=== PATIENT | female | born 1990 | race American Indian/Alaskan Native ===

== ENCOUNTER 2017-05-13 16:01 | Emergency (ER) | payer MEDICAID ==
[2017-05-13 16:46] LABS: Anion Gap 19 mmol/L; BUN/Creatinine Ratio 15.71; Blood Urea Nitrogen 11 mg/dL (7-17); Calcium 9.2 mg/dL (8.4-10.2); Carbon Dioxide 22 mmol/L (22-30); Chloride 102.4 mmol/L (98-107); Glucose 104 mg/dL (65-100); Potassium 3.9 mmol/L (3.6-5.0); Sodium 139 mmol/L (137-145)
[2017-05-13 17:08] LABS: Basophils % (Auto) 0.9 % (0.0-1.8); Eosinophils % (Auto) 3.7 % (0.0-4.3); Hematocrit 38.8 % (30.3-42.9); Hemoglobin 13.2 gm/dl (10.1-14.3); Mean Corpuscular HGB Conc 34 % (30-34); Mean Corpuscular Hemoglobin 32 pg (28-32); Mean Corpuscular Volume 95 fl (79-97); Platelet Count 270 K/mm3 (140-440); Red Blood Count 4.08 M/mm3 (3.65-5.03); Red Cell Distribution Width 13.2 % (13.2-15.2); White Blood Count 8.4 K/mm3 (4.5-11.0)
[2017-05-13] MEDS ORDERED: DELTASONE PO ONE (19:05)
[2017-05-13] MEDS ORDERED: BENADRYL PO ONE (19:05)
[2017-05-13 19:30] VITALS: BP 110/71
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
== END 2017-05-13 20:22 | disposition home or self-care (01) ==
LOC: ED 16:01
DX: T65.94XA Toxic effect of unspecified substance, undetermined, initial encounter (principal); L50.9 Urticaria, unspecified; F17.200 Nicotine dependence, unspecified, uncomplicated; X58.XXXA Exposure to other specified factors, initial encounter
CPT/HCPCS: 36415; 80048; 84703; 85025; 99283; G0480; J7512; 80320

== ENCOUNTER 2017-09-15 17:37 | Emergency (ER) | payer MEDICAID ==
[2017-09-15 18:21] VITALS: BP 135/75
[2017-09-15 19:28] LABS: BUN/Creatinine Ratio 14; Blood Urea Nitrogen 10 mg/dL (7-17); Calcium 9.4 mg/dL (8.4-10.2); Hemolysis Index 29
[2017-09-15 19:34] LABS: Hematocrit 42.9 % (30.3-42.9); Hemoglobin 14.4 gm/dl (10.1-14.3); Mean Corpuscular HGB Conc 34 % (30-34); Mean Corpuscular Hemoglobin 32 pg (28-32); Mean Corpuscular Volume 96 fl (79-97); Platelet Count 271 K/mm3 (140-440); Red Blood Count 4.48 M/mm3 (3.65-5.03); Red Cell Distribution Width 13.1 % (13.2-15.2)
[2017-09-15 19:53] LABS: HCG Qualitative,Urine Negative (Negative)
== END 2017-09-15 20:42 | disposition left against medical advice (07) ==
LOC: ED 17:37
DX: R56.9 Unspecified convulsions (principal); Z53.21 Procedure and treatment not carried out due to patient leaving prior to being seen by health care provider
CPT/HCPCS: 36415; 80048; 80185; 81025; 85027

== ENCOUNTER 2018-02-10 18:56 | Emergency (ER) | payer MEDICAID ==
[2018-02-10 20:41] VITALS: BP 108/73
== END 2018-02-10 20:40 | disposition left against medical advice (07) ==
LOC: ED 18:56
DX: R06.00 Dyspnea, unspecified (principal); Z53.21 Procedure and treatment not carried out due to patient leaving prior to being seen by health care provider

== ENCOUNTER 2018-11-04 11:00 | Emergency (ER) | payer MEDICAID, OTHER ==
[2018-11-04] MEDS ORDERED: KEPPRA 1,000 MG/NS 0.75% 100ML 1,000 MG/100 ML BAG IV ONE (11:34)
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
[2018-11-04 12:33] LABS: Basophils # (Auto) 0.1 K/mm3 (0.0-0.1); Basophils % (Auto) 1.3 % (0.0-1.8); Eosinophils # (Auto) 0.1 K/mm3 (0.0-0.4); Eosinophils % (Auto) 2.5 % (0.0-4.3); Hematocrit 39.6 % (30.3-42.9); Hemoglobin 13.6 gm/dl (10.1-14.3); Lymphocytes # (Auto) 1.9 K/mm3 (1.2-5.4); Lymphocytes % (Auto) 38.8 % (13.4-35.0); Mean Corpuscular HGB Conc 34 % (30-34); Mean Corpuscular Volume 96 fl (79-97); Monocytes # (Auto) 0.3 K/mm3 (0.0-0.8); Monocytes % (Auto) 5.4 % (0.0-7.3); Platelet Count 236 K/mm3 (140-440); Red Blood Count 4.15 M/mm3 (3.65-5.03)
[2018-11-04 12:48] LABS: BUN/Creatinine Ratio 18; Blood Urea Nitrogen 14 mg/dL (7-17); Hemolysis Index 9
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
[2018-11-04] MEDS ORDERED: TORADOL IV ONE (13:21)
[2018-11-04 13:48] VITALS: BP 108/77
== END 2018-11-04 13:47 | disposition home or self-care (01) ==
LOC: ED 11:00
DX: R56.9 Unspecified convulsions (principal); F41.9 Anxiety disorder, unspecified; V89.2XXA Person injured in unspecified motor-vehicle accident, traffic, initial encounter; Y93.89 Activity, other specified; Y92.89 Other specified places as the place of occurrence of the external cause; Y99.8 Other external cause status
CPT/HCPCS: 36415; 70450; 72125; 80048; 83735; 84703; 85025; 96365; 96375; 99284; J1885; J1953

== ENCOUNTER 2019-02-25 18:44 | Inpatient (IN) | payer MEDICAID ==
--- NOTE | 2019-02-25 20:05 | Emergency Department Report ---
HPI - General Chief Complaint: Altered Mental Status Time Seen by Provider: 02/25/19 19:59 - HPI HPI: Room 17 The patient is a 28-year-old female presented with a chief complaint of altered mental status. Patient was brought in by a friend states the patient has had worsening altered mental status since Tuesday. Patient is currently nonverbal and does not answer questions or respond. The patient keeps her eyes open. There is uncertainty whether or not the patient carries a psychiatric diagnosis. Location: [See above] Duration: [See above] Quality: [See above] Severity: [See above] Modifying factors: [see above] Context: [see above] Mode of transportation: [not driving] ED Past Medical Hx - Past Medical History Previous Medical History?: Yes Hx Seizures: Yes - Surgical History Past Surgical History?: Yes Additional Surgical History: LEFT ARM / LEFT FINGERS AMPUTATED - Family History Family history: no significant - Social History Smoking Status: Unknown if ever smoked Substance Use Type: None - Medications Home Medications: Home Medications Medication Instructions Recorded Confirmed Last Taken Type diphenhydrAMINE [Benadryl CAP] 25 mg PO Q8HR PRN #12 capsule 05/13/17 Unknown Rx predniSONE [Deltasone] 20 mg PO QDAY #3 tab 05/13/17 Unknown Rx Ibuprofen [Motrin] 800 mg PO Q8HR PRN #30 tablet 11/04/18 Unknown Rx ED Review of Systems ROS: Stated complaint: AMS Other details as noted in HPI Comment: Unobtainable due to pts medical conditions Physical Exam - Physical Exam Vital Signs: Vital Signs 02/25/19 02/25/19 02/25/19 19:18 19:30 19:45 Temperature Pulse Rate 59 L 57 L Respiratory 20 14 Rate Blood Pressure 99/55 101/58 O2 Sat by Pulse 100 100 100 Oximetry 02/25/19 19:47 Temperature 98.3 F Pulse Rate Respiratory 18 Rate Blood Pressure O2 Sat by Pulse 100 Oximetry Physical Exam: GENERAL: The patient is well-developed well-nourished female lying on stretcher with eyes open staring at the wall not responding to questions. [] HEENT: Normocephalic. Atraumatic. Pupils 4 mm to 2 mm bilaterally NECK: Supple. Trachea midline CHEST/LUNGS: Clear to auscultation. There is no respiratory distress noted. HEART/CARDIOVASCULAR: Regular. There is no tachycardia. There is no gallop rub or murmur. ABDOMEN: Abdomen is soft, nontender. Patient has normal bowel sounds. There is no abdominal distention. SKIN: There is no rash. There is no edema. There is no diaphoresis. NEURO: The patient is awake, but does not follow commands or answer questions. MUSCULOSKELETAL: There is no evidence of acute injury. ED Course Vital Signs 02/25/19 02/25/19 02/25/19 19:18 19:30 19:45 Temperature Pulse Rate 59 L 57 L Respiratory 20 14 Rate Blood Pressure 99/55 101/58 O2 Sat by Pulse 100 100 100 Oximetry 02/25/19 19:47 Temperature 98.3 F Pulse Rate Respiratory 18 Rate Blood Pressure O2 Sat by Pulse 100 Oximetry - Reevaluation(s) Reevaluation #1: 02/26/19 00:33 Patient reports to have a seizure by nursing. Friend is at bedside and states the patient has had increased seizure-like activity and decreased activity over the past 3-4 days ED Medical Decision Making - Lab Data Result diagrams: 02/25/19 20:19 02/25/19 20:19 Laboratory Tests 02/25/19 02/25/19 02/25/19 20:19 20:19 21:04 WBC 10.4 RBC 4.09 Hgb 14.0 Hct 39.4 MCV 96 MCH 34 H MCHC 36 H RDW 12.8 L Plt Count 264 Lymph % (Auto) 22.9 [place] % (Auto) 4.6 Eos % (Auto) 0.5 Baso % (Auto) 0.7 Lymph # 2.4 [place] # 0.5 Eos # 0.0 Baso # 0.1 Seg Neutrophils % 71.3 H Seg Neutrophils # 7.4 PT 13.6 INR 1.07 APTT 24.7 Sodium 136 L Potassium 4.1 Chloride 98.6 Carbon Dioxide 23 Anion Gap 19 BUN 14 Creatinine 0.9 Estimated GFR > 60 BUN/Creatinine Ratio 16 Glucose 89 Calcium 9.5 Magnesium Ammonia Total Creatine Kinase CK-MB (CK-2) CK-MB (CK-2) Rel Index Troponin T TSH Free T4 HCG, Qual Urine Color Urine Turbidity Urine pH Ur Specific [place] Urine Protein Urine Glucose (UA) Urine Ketones Urine Blood Urine Nitrite Urine Bilirubin Urine Urobilinogen Ur Leukocyte Esterase Urine WBC (Auto) Urine RBC (Auto) U Epithel Cells (Auto) Urine Mucus Urine Opiates Screen Urine Methadone Screen Ur Barbiturates Screen Ur Phencyclidine Scrn Ur Amphetamines Screen U Benzodiazepines Scrn Urine Cocaine Screen U Marijuana (THC) Screen Drugs of Abuse Note Plasma/Serum Alcohol 02/25/19 02/25/19 02/25/19 21:04 21:04 21:04 WBC RBC Hgb Hct MCV MCH MCHC RDW Plt Count Lymph % (Auto) [place] % (Auto) Eos % (Auto) Baso % (Auto) Lymph # [place] # Eos # Baso # Seg Neutrophils % Seg Neutrophils # PT INR APTT Sodium Potassium Chloride Carbon Dioxide Anion Gap BUN Creatinine Estimated GFR BUN/Creatinine Ratio Glucose Calcium Magnesium 2.20 Ammonia 54.0 Total Creatine Kinase 148 H CK-MB (CK-2) < 1.0 CK-MB (CK-2) Rel Index 0.6 Troponin T < 0.010 TSH 2.120 Free T4 1.53 H HCG, Qual Urine Color Urine Turbidity Urine pH Ur Specific [place] Urine Protein Urine Glucose (UA) Urine Ketones Urine Blood Urine Nitrite Urine Bilirubin Urine Urobilinogen Ur Leukocyte Esterase Urine WBC (Auto) Urine RBC (Auto) U Epithel Cells (Auto) Urine Mucus Urine Opiates Screen Urine Methadone Screen Ur Barbiturates Screen Ur Phencyclidine Scrn Ur Amphetamines Screen U Benzodiazepines Scrn Urine Cocaine Screen U Marijuana (THC) Screen Drugs of Abuse Note Plasma/Serum Alcohol 02/25/19 02/25/19 02/25/19 21:04 21:04 23:03 WBC RBC Hgb Hct MCV MCH MCHC RDW Plt Count Lymph % (Auto) [place] % (Auto) Eos % (Auto) Baso % (Auto) Lymph # [place] # Eos # Baso # Seg Neutrophils % Seg Neutrophils # PT INR APTT Sodium Potassium Chloride Carbon Dioxide Anion Gap BUN Creatinine Estimated GFR BUN/Creatinine Ratio Glucose Calcium Magnesium Ammonia Total Creatine Kinase CK-MB (CK-2) CK-MB (CK-2) Rel Index Troponin T TSH Free T4 HCG, Qual Negative Urine Color Urine Turbidity Urine pH Ur Specific [place] Urine Protein Urine Glucose (UA) Urine Ketones Urine Blood Urine Nitrite Urine Bilirubin Urine Urobilinogen Ur Leukocyte Esterase Urine WBC (Auto) Urine RBC (Auto) U Epithel Cells (Auto) Urine Mucus Urine Opiates Screen Presumptive negative Urine Methadone Screen Presumptive negative Ur Barbiturates Screen Presumptive negative Ur Phencyclidine Scrn Presumptive negative Ur Amphetamines Screen Presumptive negative U Benzodiazepines Scrn Presumptive negative Urine Cocaine Screen Presumptive negative U Marijuana (THC) Screen Presumptive positive Drugs of Abuse Note Disclamer Plasma/Serum Alcohol < 0.01 02/25/19 23:10 WBC RBC Hgb Hct MCV MCH MCHC RDW Plt Count Lymph % (Auto) [place] % (Auto) Eos % (Auto) Baso % (Auto) Lymph # [place] # Eos # Baso # Seg Neutrophils % Seg Neutrophils # PT INR APTT Sodium Potassium Chloride Carbon Dioxide Anion Gap BUN Creatinine Estimated GFR BUN/Creatinine Ratio Glucose Calcium Magnesium Ammonia Total Creatine Kinase CK-MB (CK-2) CK-MB (CK-2) Rel Index Troponin T TSH Free T4 HCG, Qual Urine Color Yellow Urine Turbidity Clear Urine pH 5.0 Ur Specific [place] 1.026 Urine Protein 100 mg/dl Urine Glucose (UA) Neg Urine Ketones 80 Urine Blood Neg Urine Nitrite Neg Urine Bilirubin Neg Urine Urobilinogen < 2.0 Ur Leukocyte Esterase Neg Urine WBC (Auto) 1.0 Urine RBC (Auto) < 1.0 U Epithel Cells (Auto) 1.0 Urine Mucus 1+ Urine Opiates Screen Urine Methadone Screen Ur Barbiturates Screen Ur Phencyclidine Scrn Ur Amphetamines Screen U Benzodiazepines Scrn Urine Cocaine Screen U Marijuana (THC) Screen Drugs of Abuse Note Plasma/Serum Alcohol - EKG Data -: EKG Interpreted by Ct EKG shows normal: sinus rhythm Rate: normal - EKG Data When compared to previous EKG there are: previous EKG unavailable Interpretation: other (no ischemic changes seen) - Radiology Data Radiology results: report reviewed (CT head), image reviewed (CT head) [facility] [address] [place] [address] Cat Scan Report Signed Patient: MICHELLE HANNON MR#: [id number] : 1990 Acct:[id number] Age/Sex: 28 / F ADM Date: 02/25/19 Loc: ED Attending Dr: Ordering Physician: JOCE SANTIAGO MD Date of Service: 02/25/19 Procedure(s): CT head/brain wo con Accession Number(s): [id number] cc: JOCE SANTIAGO MD CT HEAD WITHOUT CONTRAST INDICATION: altered mental status. TECHNIQUE: All CT scans at this location are performed using CT dose reduction for ALARA by means of automated exposure control. COMPARISON: CT 11/04/2018. FINDINGS: HEMORRHAGE: None. EXTRA-AXIAL SPACES: Normal in size and morphology for the patient's age. VENTRICULAR SYSTEM: Normal in size and morphology for the patient's age. BRAIN PARENCHYMA: No acute findings. MIDLINE SHIFT OR HERNIATION: None. ORBITS: Normal as visualized. SOFT TISSUES OF HEAD: Normal. CALVARIUM: Normal. VISUALIZED PARANASAL SINUSES AND MASTOID AIR CELLS: Clear. ADDITIONAL FINDINGS: None. IMPRESSION: 1. No acute intracranial abnormality. Signer Name: Khanh Hopkins MD Signed: 02/25/2019 10:44 PM Workstation Name: [id number] Transcribed By: SW Dictated By: Khanh Hopkins MD Electronically Authenticated By: Khanh Hopkins MD Signed Date/Time: 02/25/192243 DD/ 41 TD/TT: - Differential Diagnosis status epilepticus, altered mental status, psychosis Critical care attestation.: If time is entered above; I have spent that time in minutes in the direct care of this critically ill patient, excluding procedure time. ED Disposition Clinical Impression: Altered mental status, Status epilepticus Disposition: OP ADMIT IP TO THIS HOSP Is pt being admited?: Yes Does the pt Need Aspirin: No Condition: Fair Referrals: PRIMARY CARE, [Primary Care Provider] - 3-5 Days Time of Disposition: 00:49 (hospitalist paged (Dr. Shahnaz Grijalva))
[2019-02-25 20:40] LABS: Basophils # (Auto) 0.1 K/mm3 (0.0-0.1); Basophils % (Auto) 0.7 % (0.0-1.8); Eosinophils % (Auto) 0.5 % (0.0-4.3); Hematocrit 39.4 % (30.3-42.9); Lymphocytes # (Auto) 2.4 K/mm3 (1.2-5.4); Lymphocytes % (Auto) 22.9 % (13.4-35.0); Mean Corpuscular HGB Conc 36 % (30-34); Mean Corpuscular Volume 96 fl (79-97); Monocytes # (Auto) 0.5 K/mm3 (0.0-0.8); Monocytes % (Auto) 4.6 % (0.0-7.3); Platelet Count 264 K/mm3 (140-440); Red Blood Count 4.09 M/mm3 (3.65-5.03); Red Cell Distribution Width 12.8 % (13.2-15.2)
[2019-02-25 21:15] LABS: BUN/Creatinine Ratio 16; Blood Urea Nitrogen 14 mg/dL (7-17); Calcium 9.5 mg/dL (8.4-10.2); Hemolysis Index 8
[2019-02-25 21:48] LABS: INR 1.07 (0.87-1.13)
[2019-02-25 21:49] LABS: Partial Thromboplastin Time 24.7 Sec. (24.2-36.6)
[2019-02-25 22:17] LABS: Free T4 (Free Thyroxine) 1.53 ng/dL (0.76-1.46)
[2019-02-25 22:31] LABS: Creatine Kinase MB < 1.0 ng/mL (0.0-4.0)
--- NOTE | 2019-02-25 22:48 | Cat Scan Report ---
CT HEAD WITHOUT CONTRAST INDICATION: altered mental status. TECHNIQUE: All CT scans at this location are performed using CT dose reduction for ALARA by means of automated e xposure control. COMPARISON: CT 11/04/2018. FINDINGS: HEMORRHAGE: None. EXTRA-AXIAL SPACES: Normal in size and morphology for the patient's age. VENTRICULAR SYSTEM: Normal in size and morphology for the patient's age. BRAIN PARENCHYMA: No acute findings. MIDLINE SHIFT OR HERNIATION: None. ORBITS: Normal as visualized. SOFT TISSUES OF HEAD: Normal. CALVARIUM: Normal. VISUALIZED PARANASAL SINUSES AND MASTOID AIR CELLS: Clear. ADDITIONAL FINDINGS: None. IMPRESSION: 1. No acute intracranial abnormality. Signer Name: Khanh Hopkins MD Signed: 02/25/2019 10:44 PM Workstation Name: [id number]
[2019-02-25 23:22] LABS: Bilirubin,Urine NEG (Negative); Blood,Urine NEG (Negative); Color,Urine Yellow (Yellow); Mucus,Urine 1+ /HPF; RBC,Urine < 1.0 /HPF (0.0-6.0); Urobilinogen,Urine < 2.0 mg/dL (<2.0)
[2019-02-25 23:36] LABS: Amphetamine Screen,Urine PRESUMPTIVE NEGATIVE; Benzodiazepines Screen,Urine PRESUMPTIVE NEGATIVE; Cocaine Screen,Urine PRESUMPTIVE NEGATIVE; Methadone Screen,Urine PRESUMPTIVE NEGATIVE; Opiate Screen,Urine PRESUMPTIVE NEGATIVE
[2019-02-26 00:02] LABS: Cannabinoid Screen,Urine PRESUMPTIVE POSITIVE
[2019-02-26] MEDS ORDERED: KEPPRA 1,000 MG/NS 0.75% 100ML 1,000 MG/100 ML BAG IV ONE (00:31)
[2019-02-26] MEDS ORDERED: ATIVAN ONE (00:40)
[2019-02-26] MEDS ORDERED: ZOFRAN IV PRN (01:18)
[2019-02-26] MEDS ORDERED: SODIUM CHLORIDE FLUSH SYRINGE 10 ML IV PRN (01:18)
--- NOTE | 2019-02-26 01:20 | History and Physical Report ---
History of Present Illness Date of examination: 02/26/19 History of present illness: 28 year old woman with a history of seizure was brought to the emergency room by her because she has been altered. One of the nurse in emergency room reported that she had seizure-like activity. Denies that currently has her state that she had some jerking of her body which was not seizures. I have also witnessed this and my interaction with her. She is very tearful, nonverbal, stares off into space. Nurse reported that the friend told her that the patient is under a lot of stress, review of systems unobtainable PAST MEDICAL HISTORY:Unknown PAST SURGICAL HISTORY: Unknown SOCIAL HISTORY:Unknown alcohol, tobacco, marijuana in urine FAMILY HISTORY: Unknown Medications and Allergies Allergies Allergy/AdvReac Type Severity Reaction Status Date / Time No Known Allergies Allergy Verified 02/10/18 20:59 Home Medications Medication Instructions Recorded Confirmed Last Taken Type diphenhydrAMINE [Benadryl CAP] 25 mg PO Q8HR PRN #12 capsule 05/13/17 Unknown Rx predniSONE [Deltasone] 20 mg PO QDAY #3 tab 05/13/17 Unknown Rx Ibuprofen [Motrin] 800 mg PO Q8HR PRN #30 tablet 11/04/18 Unknown Rx Exam - Physical Exam Narrative exam: General Apperance: The patient lying in bed, breathing comfortable HEENT: Normocephalic, atraumatic. Pupils equally round and reactive to light, EOMI, no sclericterus or JVD or thyromegaly or nodule. , no carotid bruit, mucous membranes moist, no exudate or erythema Heart: S1-S2, regular is rhythm Lungs: Clear to auscultation bilaterally, breathing comfortable Abdomen: Positive bowel sounds, soft, nontender, nondistended, no organomegaly Extremities: No edema cyanosis clubbing Skin: no rash, nodule, warm and dry Neuro:difficult to assess - Constitutional Vitals: Temp Pulse Resp BP Pulse Ox 98.3 F 58 L 17 113/69 98 02/25/19 19:47 02/26/19 01:00 02/26/19 01:00 02/26/19 01:00 02/26/19 01:00 Results - Labs CBC & Chem 7: 02/25/19 20:19 02/25/19 20:19 Labs: Abnormal lab results 02/25/19 02/25/19 02/25/19 Range/Units 20:19 20:19 21:04 MCH 34 H (28-32) pg MCHC 36 H (30-34) % RDW 12.8 L (13.2-15.2) % Seg Neutrophils % 71.3 H (40.0-70.0) % Sodium 136 L (137-145) mmol/L Total Creatine Kinase 148 H (30-135) units/L Free T4 (0.76-1.46) ng/dL 02/25/19 Range/Units 21:04 MCH (28-32) pg MCHC (30-34) % RDW (13.2-15.2) % Seg Neutrophils % (40.0-70.0) % Sodium (137-145) mmol/L Total Creatine Kinase (30-135) units/L Free T4 1.53 H (0.76-1.46) ng/dL - Imaging and Cardiology CT Scan - head: report reviewed Assessment and Plan Assessment 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
[2019-02-26] MEDS ORDERED: ATIVAN IV PRN (01:23)
[2019-02-26 06:28] LABS: Basophils # (Auto) 0.1 K/mm3 (0.0-0.1); Eosinophils # (Auto) 0.2 K/mm3 (0.0-0.4); Eosinophils % (Auto) 2.3 % (0.0-4.3); Hematocrit 41.3 % (30.3-42.9); Hemoglobin 13.8 gm/dl (10.1-14.3); Lymphocytes # (Auto) 2.7 K/mm3 (1.2-5.4); Mean Corpuscular HGB Conc 33 % (30-34); Mean Corpuscular Volume 97 fl (79-97); Monocytes # (Auto) 0.5 K/mm3 (0.0-0.8); Monocytes % (Auto) 6.4 % (0.0-7.3); Platelet Count 268 K/mm3 (140-440); Red Blood Count 4.27 M/mm3 (3.65-5.03); Red Cell Distribution Width 13.3 % (13.2-15.2)
[2019-02-26 06:51] LABS: BUN/Creatinine Ratio 19; Blood Urea Nitrogen 13 mg/dL (7-17); Calcium 9.3 mg/dL (8.4-10.2); Hemolysis Index 1
[2019-02-26] MEDS ORDERED: LOVENOX SUB-Q SCH (10:00)
[2019-02-26] MEDS: LOVENOX SUB-Q SCH (10:31)
[2019-02-26] MEDS: SODIUM CHLORIDE FLUSH SYRINGE 10 ML IV SCH ×2 (10:31→22:56)
--- NOTE | 2019-02-26 10:39 | Consultation ---
History of Present Illness - Reason for Consult Consult date: 02/26/19 Reason for consult: Mental Health Evaluation Requesting physician: GEOVANNY VIZCAINO - Chief Complaint Chief complaint: "The isn't communicating" - History of Present Psychiatric Illness 28-year-old AA female who presented to the ER for AMS. Today the patient was was not communicating, but her left hand was clenched tight. She would not open her eyes when asked. Per collateral information from a friend of the patient Christiano who was at the bedside, he stated that the patient has a hx of seizures (taken several anticonvulsants), depression, and anxiety. He stated that the patient have not eaten or communicated like "herself" the past 2 or 3 days. He did state that the patient experienced some stress reference a situation with her daughter that occurred in [place], [place] recently. Ativan challenge completed, no significant change in the patient's presentation per her assigned RN. Medications and Allergies Allergies Allergy/AdvReac Type Severity Reaction Status Date / Time No Known Allergies Allergy Verified 02/10/18 20:59 Home Medications Medication Instructions Recorded Confirmed Last Taken Type predniSONE [Deltasone] 20 mg PO QDAY #3 tab 05/13/17 Unknown Rx Ibuprofen [Motrin] 800 mg PO Q8HR PRN #30 tablet 11/04/18 Unknown Rx Vimpat 100 tab PO 02/26/19 Unknown History diphenhydrAMINE [Benadryl CAP] 25 mg PO Q8HR PRN 02/26/19 Unknown History Active Meds: Active Medications Acetaminophen (Tylenol) 650 mg PO Q4H PRN PRN Reason: Pain MILD(1-3)/Fever >100.5/CHAVEZ Enoxaparin Sodium (Lovenox) 40 mg SUB-Q QDAY@1000 BELTRAN Last Admin: 02/26/19 10:31 Dose: 40 mg Documented by: Sodium Chloride (Nacl 0.9% 1000 Ml) 1,000 mls @ 100 mls/hr IV DIRECT BELTRAN Lorazepam (Ativan) 1 mg IV Q4H PRN PRN Reason: Seizures Lorazepam (Ativan) 1 mg IM ONCE ONE Stop: 02/26/19 10:46 Last Admin: 02/26/19 10:33 Dose: 1 mg Documented by: Ondansetron HCl (Zofran) 4 mg IV Q8H PRN PRN Reason: Nausea And Vomiting Sodium Chloride (Sodium Chloride Flush Syringe 10 Ml) 10 ml IV BID BELTRAN Last Admin: 02/26/19 10:31 Dose: 10 ml Documented by: Sodium Chloride (Sodium Chloride Flush Syringe 10 Ml) 10 ml IV PRN PRN PRN Reason: LINE FLUSH Past psychiatric history - Past Medical History Past Medical History: other (Hx of seizures per collateral information) Past Surgical History: Other (Unable to obatin ) - past Psychiatric treatment and history psychiatric treatment history: Hx of depression/anxiety per collateral information. - Social History Social history: lives with family Mental Status Exam - Vital signs Last Vital Signs Temp 98.2 F 02/26/19 08:52 Pulse 60 02/26/19 03:41 Resp 19 02/26/19 08:52 BP 116/66 02/26/19 08:52 Pulse Ox 98 02/26/19 09:35 - Exam Narrative exam: Unable to complete the MSE because of the patient's condition. Results Result Diagrams: 02/26/19 06:01 02/26/19 06:01 Abnormal lab results 02/25/19 02/25/19 02/25/19 Range/Units 20:19 20:19 21:04 MCH 34 H (28-32) pg MCHC 36 H (30-34) % RDW 12.8 L (13.2-15.2) % Seg Neutrophils % 71.3 H (40.0-70.0) % Sodium 136 L (137-145) mmol/L Carbon Dioxide (22-30) mmol/L Total Creatine Kinase 148 H (30-135) units/L Free T4 (0.76-1.46) ng/dL 02/25/19 02/26/19 Range/Units 21:04 06:01 MCH (28-32) pg MCHC (30-34) % RDW (13.2-15.2) % Seg Neutrophils % (40.0-70.0) % Sodium (137-145) mmol/L Carbon Dioxide 20 L (22-30) mmol/L Total Creatine Kinase (30-135) units/L Free T4 1.53 H (0.76-1.46) ng/dL All other labs normal. Assessment and Plan Assessment and plan: Impression: Hx of Depresion/Anxiety DO per collateral information. Today the patient was not communicating, but her left hand was clenched tight. Recommendation/Plan: Ativan 1 mg IM once to R/O catatonia (Ativan Challenge). Recommend Neuro consult, the patient has a hx of seizures per collateral information from Christiano a friend who's at the bedside. Staffed with Dr Tatiana Brunner.
[2019-02-26] MEDS ORDERED: ATIVAN IM ONE (10:45)
[2019-02-26] MEDS: NACL 0.9% 1000 ML 1,000 ML IV SCH ×2 (11:06→18:50)
[2019-02-27] MEDS: NACL 0.9% 1000 ML 1,000 ML IV SCH (05:29)
[2019-02-27] MEDS: TYLENOL PO PRN ×2 (05:57→08:42)
[2019-02-27] MEDS: SODIUM CHLORIDE FLUSH SYRINGE 10 ML IV SCH (09:13)
[2019-02-27] MEDS: LOVENOX SUB-Q SCH (09:13)
--- NOTE | 2019-02-27 13:34 | Progress Note ---
Subjective - Reason for Consult Consult date: 02/27/19 Reason for consult: Psychiatry Follow-up - Chief Complaint Chief complaint: "I'm in pain" 28-year-old AA female who presented to the ER for AMS. Today the patient was calm and cooperative during the assessment. She stated that that she was having pain the past few days and felt "weird." She stated that she remember me the provider from yesterday. She was able to recall 3/3 numbers and state the cu rrent/past [place] Presidents when asked. She stated that her seizure activity has caused her to feel "depressed." She did acknowledged not not following up with her neurologist as she should. She stated that she has a hx of depression/anxiety. She stated that she do not want to take any medications for depression/anxiety because she can deal with her stressors. She denies a past suicide attempt when asked. She denies SI/HI's and AVH's. She stated that she is homeless. . Mental Status Exam - Vital signs Last Vital Signs Temp 98.2 F 02/27/19 11:49 Pulse 58 L 02/27/19 11:49 Resp 19 02/27/19 11:49 BP 111/69 02/27/19 11:49 Pulse Ox 98 02/27/19 11:49 - Exam Narrative exam: MSE: Appearance: calm, cooperative Behavior: regular eye contact Speech: regular rate and tone Mood: "okay" Affect: congruent to mood Thought Process: circumstantial Thought Content: denies SI/HI's and AVH's Motor Activity: ambulatory Cognition: A/O x 3 Insight: fair Judgment fair Assessment and Plan Impression: Hx of Depresion/Anxiety DO per collateral information. The patient stated that she's experiencing pain. Today the patient was calm and cooperative during the assessment. Recommendation/Plan: Discussed risk/benefits of SSRI's with the patient, she prefer talk therapy at this time. Case Mgmt consulted, the patient may need assistance with placement. Psy sign off. Dispo: The patient can follow up with [facility] for outpatient psy services. Will staff with Dr Tatiana Brunner.
[2019-02-27 18:12] VITALS: BP 128/79
--- NOTE | 2019-02-27 18:14 | Discharge Summary ---
Providers - Providers Date of Admission: 02/26/19 01:18 Attending physician: MICHELLE WILSON MD 02/26/19 01:22 Consult to Mental Health [CONS] Routine Reason For Exam: psychogenic sz Place consult to:: psych Notified:: Phone number called:: [phone] Was contact made?: No Time called:: 11:14 Comment:: someone answered the phone. 02/27/19 13:21 Consult to Case Management [CONS] Stat Services Needed at Discharge: Warehouse Associate Driver Notified:: Called case Mgmt Primary care physician: INVESTIGATIVE AGENT Hospitalization Condition: Fair Hospital course: 28 year old woman with a history of seizure was brought to the emergency room by her because she has been altered. She had shaking of extremities due to stress, but no seizures, she was seen by psych, and reassured and advised to fup as outpatient. She complained of body aches and was given pain meds - dx conversion disorder stress pain syndrome Disposition: TO HOME OR SELFCARE Time spent for discharge: 33 minutes Core Measure Documentation - Palliative Care Palliative Care/ Comfort Measures: Not Applicable - Core Measures Any of the following diagnoses?: none Exam - Constitutional Vitals: Temp Pulse Resp BP Pulse Ox 98.4 F 58 L 19 128/79 98 02/27/19 17:09 02/27/19 11:49 02/27/19 17:09 02/27/19 17:09 02/27/19 11:49 General appearance: Present: no acute distress, well-nourished - EENT Eyes: Present: PERRL ENT: hearing intact, clear oral mucosa - Neck Neck: Present: supple, normal ROM - Respiratory Respiratory effort: normal Respiratory: bilateral: CTA - Cardiovascular Heart Sounds: Present: S1 & S2. Absent: rub, click - Extremities Extremities: pulses symmetrical, No edema Peripheral Pulses: within normal limits - Abdominal General gastrointestinal: Present: soft, non-tender, non-distended, normal bowel sounds Female genitourinary: Present: normal - Integumentary Integumentary: Present: clear, warm, dry - Musculoskeletal Musculoskeletal: gait normal, strength equal bilaterally - Psychiatric Psychiatric: appropriate mood/affect, intact judgment & insight - Neurologic Neurologic: CNII-XII intact, moves all extremities Plan Follow up with: PRIMARY CARE, [Primary Care Provider] - 3-5 Days Prescriptions: oxyCODONE /ACETAMINOPHEN [Percocet 5/325] 1 tab PO Q6HR PRN #30 tablet PRN Reason: Pain
== END 2019-02-27 22:25 | disposition home or self-care (01) | DRG 880 ==
LOC: ED 18:44 → 3A 02-26 01:18
PROVIDERS: ADMIT Internal Medicine; ATTEND Internal Medicine
DX: F44.9 Dissociative and conversion disorder, unspecified (principal); F29 Unspecified psychosis not due to a substance or known physiological condition; F32.9 Major depressive disorder, single episode, unspecified; F41.9 Anxiety disorder, unspecified; F44.4 Conversion disorder with motor symptom or deficit; R52 Pain, unspecified; F43.9 Reaction to severe stress, unspecified
CPT/HCPCS: 36415; 70450; 80048; 80307; 80320; 81001; 82140; 82550; 82553; 83735; 84439; 84443; 84484; 84703; 85025; 85610; 85730; 93005; 93010; G0378; G0480; J1650; J1953; J2060; J7030

== ENCOUNTER 2020-07-10 11:19 | Emergency (ER) | payer MEDICAID ==
[2020-07-10] MEDS ORDERED: SODIUM CHLORIDE 0.9% 1000 ML 1,000 ML IV ONE (11:52)
--- NOTE | 2020-07-10 12:00 | Emergency Department Report ---
ED Seizure HPI - General Chief Complaint: Seizure Stated Complaint: SEIZURE Time Seen by Provider: 07/10/20 11:52 Source: patient, EMS Mode of arrival: Stretcher Limitations: Altered Mental Status - History of Present Illness Initial Comments: Patient is a 30-year-old F [place]ian female who is had between 10 and 15 seizures over the last 2 days. Family states she takes Dilantin but is noncompliant. Family states that in between seizures she has had altered mental status. She is not return to present to her baseline. Has been no report of any fevers chills nausea vomiting. Patient had a similar episode 2 months ago and was loaded with Dilantin because her levels were subtherapeutic. given Ativan 2mg IM for being postictal and combative prior to arrival MD Complaint: seizure - Related Data Home Medications Medication Instructions Recorded Confirmed Last Taken Vimpat 100 tab PO 02/26/19 Unknown diphenhydrAMINE [Benadryl CAP] 25 mg PO Q8HR PRN 02/26/19 Unknown Previous Rx's Medication Instructions Recorded Last Taken Type predniSONE [Deltasone] 20 mg PO QDAY #3 tab 05/13/17 Unknown Rx Ibuprofen [Motrin 800 MG tab] 800 mg PO Q8HR PRN #30 tablet 11/04/18 Unknown Rx oxyCODONE /ACETAMINOPHEN [Percocet 1 tab PO Q6HR PRN #30 tablet 02/27/19 Unknown Rx 5/325] Phenytoin [Dilantin] 100 mg PO Q8HR #90 capsule 07/10/20 Unknown Rx levETIRAcetam [Keppra TAB] 500 mg PO BID #60 tablet 07/10/20 Unknown Rx Allergies Allergy/AdvReac Type Severity Reaction Status Date / Time No Known Allergies Allergy Verified 02/10/18 20:59 ED Review of Systems ROS: Stated complaint: SEIZURE Other details as noted in HPI Comment: All other systems reviewed and negative ED Past Medical Hx - Past Medical History Hx CVA: Yes Hx Seizures: Yes Additional medical history: meningitis - Surgical History Additional Surgical History: LEFT ARM / LEFT FINGERS AMPUTATED - Social History Smoking Status: Unknown if ever smoked - Medications Home Medications: Home Medications Medication Instructions Recorded Confirmed Last Taken Type predniSONE [Deltasone] 20 mg PO QDAY #3 tab 05/13/17 Unknown Rx Ibuprofen [Motrin 800 MG tab] 800 mg PO Q8HR PRN #30 tablet 11/04/18 Unknown Rx Vimpat 100 tab PO 02/26/19 Unknown History diphenhydrAMINE [Benadryl CAP] 25 mg PO Q8HR PRN 02/26/19 Unknown History oxyCODONE /ACETAMINOPHEN [Percocet 1 tab PO Q6HR PRN #30 tablet 02/27/19 Unknown Rx 5/325] Phenytoin [Dilantin] 100 mg PO Q8HR #90 capsule 07/10/20 Unknown Rx levETIRAcetam [Keppra TAB] 500 mg PO BID #60 tablet 07/10/20 Unknown Rx ED Physical Exam - General Limitations: Altered Mental Status General appearance: lethargic (likley secondary to Ativan and being postictal), other - Head Head exam: Present: atraumatic, normocephalic - Eye Eye exam: Present: normal appearance - ENT ENT exam: Present: mucous membranes moist - Neck Neck exam: Present: normal inspection - Respiratory Respiratory exam: Present: normal lung sounds bilaterally. Absent: respiratory distress, wheezes, rales, rhonchi - Cardiovascular Cardiovascular Exam: Present: regular rate, normal rhythm, normal heart sounds. Absent: systolic murmur, diastolic murmur, rubs, gallop - GI/Abdominal GI/Abdominal exam: Present: soft, normal bowel sounds. Absent: distended, tenderness, guarding - Extremities Exam Extremities exam: Present: normal inspection - Back Exam Back exam: Present: normal inspection - Neurological Exam Neurological exam: Present: alert (arousable but lethargic), altered - Psychiatric Psychiatric exam: Present: normal affect, normal mood - Skin Skin exam: Present: warm, dry, intact, normal color. Absent: rash ED Course Vital Signs 07/10/20 11:43 Temperature 98.3 F Pulse Rate 98 H Respiratory 18 Rate Blood Pressure 105/49 O2 Sat by Pulse 97 Oximetry ED Medical Decision Making - Lab Data Result diagrams: 07/10/20 12:16 07/10/20 12:16 Lab Results 07/10/20 07/10/20 07/10/20 Range/Units 12:16 12:16 12:16 WBC 14.8 H (4.5-11.0) K/mm3 RBC 3.87 (3.65-5.03) M/mm3 Hgb 12.8 (10.1-14.3) gm/dl Hct 37.6 (30.3-42.9) % MCV 97 (79-97) fl MCH 33 H (28-32) pg MCHC 34 (30-34) % RDW 13.0 L (13.2-15.2) % Plt Count 227 (140-440) K/mm3 Lymph % (Auto) 9.0 L (13.4-35.0) % [place] % (Auto) 4.0 (0.0-7.3) % Eos % (Auto) 0.0 (0.0-4.3) % Baso % (Auto) 0.4 (0.0-1.8) % Lymph # (Auto) 1.3 (1.2-5.4) K/mm3 [place] # (Auto) 0.6 (0.0-0.8) K/mm3 Eos # (Auto) 0.0 (0.0-0.4) K/mm3 Baso # (Auto) 0.1 (0.0-0.1) K/mm3 Seg Neutrophils % 86.6 H (40.0-70.0) % Seg Neutrophils # 12.9 H (1.8-7.7) K/mm3 Sodium 134 L (137-145) mmol/L Potassium 3.5 L (3.6-5.0) mmol/L Chloride 99.6 (98-107) mmol/L Carbon Dioxide 24 (22-30) mmol/L Anion Gap 14 mmol/L BUN 14 (7-17) mg/dL Creatinine 0.9 (0.6-1.2) mg/dL Estimated GFR > 60 ml/min BUN/Creatinine Ratio 16 % Glucose 103 H (65-100) mg/dL Calcium 9.0 (8.4-10.2) mg/dL Total Creatine Kinase 6405 H (30-135) units/L Phenytoin 3.1 L (10.0-20.0) ug/mL - Medical Decision Making Patient has a history of taking Dilantin however when she became more lucid she states she is takes Keppra. She does have some Dilantin in her system therefore she may be on both of these medications. Patient will be given prescriptions has been urged to continue taking these medications as prescribed to keep her cell from having had necessary seizures. Patient discharged home. Critical care attestation.: If time is entered above; I have spent that time in minutes in the direct care of this critically ill patient, excluding procedure time. ED Disposition Clinical Impression: Seizure, Seizure secondary to subtherapeutic anticonvulsant medication, Medical non-compliance Disposition: TO HOME OR SELFCARE Is pt being admited?: No Does the pt Need Aspirin: No Condition: Stable Instructions: Epilepsy, [id number] Prescriptions: Phenytoin [Dilantin] 100 mg PO Q8HR #90 capsule levETIRAcetam [Keppra TAB] 500 mg PO BID #60 tablet Referrals: PRIMARY MD LUIS ALBERTO [Primary Care Provider] - 3-5 Days SHIRA CALERO MD [Referring] - 3-5 Days Time of Disposition: 16:06
[2020-07-10 13:10] LABS: Basophils # (Auto) 0.1 K/mm3 (0.0-0.1); Basophils % (Auto) 0.4 % (0.0-1.8); Hematocrit 37.6 % (30.3-42.9); Hemoglobin 12.8 gm/dl (10.1-14.3); Lymphocytes # (Auto) 1.3 K/mm3 (1.2-5.4); Mean Corpuscular HGB Conc 34 % (30-34); Mean Corpuscular Volume 97 fl (79-97); Monocytes # (Auto) 0.6 K/mm3 (0.0-0.8); Platelet Count 227 K/mm3 (140-440); Red Blood Count 3.87 M/mm3 (3.65-5.03)
[2020-07-10 13:27] LABS: BUN/Creatinine Ratio 16; Blood Urea Nitrogen 14 mg/dL (7-17); Hemolysis Index 11
[2020-07-10] MEDS ORDERED: levETIRAcetam 1000 MG/NS 0.75% 1,000 MG/100 ML BAG IV ONE (13:35)
[2020-07-10] MEDS ORDERED: KETOROLAC 30 MG/1 ML INJ IV ONE (13:52)
[2020-07-10] MEDS ORDERED: PHENYTOIN 1,000 MG in SODIUM CHLORIDE 0.9% 250ML 250 ML IV ONE (14:00)
[2020-07-10 21:19] VITALS: BP 103/63
== END 2020-07-11 | disposition home or self-care (01) ==
LOC: ED 11:19
DX: R56.9 Unspecified convulsions (principal); Z91.19 Patient's noncompliance with other medical treatment and regimen; Z86.73 Personal history of transient ischemic attack (TIA), and cerebral infarction without residual deficits; Z98.890 Other specified postprocedural states; Z79.1 Long term (current) use of non-steroidal anti-inflammatories (NSAID); Z79.899 Other long term (current) drug therapy
CPT/HCPCS: 36415; 80048; 80185; 82550; 85025; 96361; 96365; 96368; 96375; 99284; J1165; J1885; J1953; J7030; J7050

== ENCOUNTER 2021-03-05 12:03 | Observation (INO) | payer MEDICAID ==
[2021-03-05] MEDS ORDERED: levETIRAcetam 1000 MG/NS 0.75% 1,000 MG/100 ML BAG IV ONE ×2 (12:24→12:28)
[2021-03-05] MEDS ORDERED: SODIUM CHLORIDE 0.9% 1000 ML 1,000 ML ONE (12:26)
[2021-03-05] MEDS ORDERED: SODIUM CHLORIDE 0.9% 1000 ML 1,000 ML IV ONE ×2 (12:29→16:29)
--- NOTE | 2021-03-05 13:02 | Emergency Department Report ---
HPI - General Chief Complaint: Seizure Time Seen by Provider: 03/05/21 12:26 - HPI HPI: 30-year-old female with history of seizure disorder noncompliant with prescribed Keppra 500 mg twice daily and gabapentin 100 mg 3 times daily brought in by EMS after reportedly having 8 seizures at home since 3 AM. According to the EMS report, the patient's father said that she is serized 8 times but did not know the duration. When EMS arrived she was postictal, confused, and combative. In route she had 2 convulsive seizures and was given 2 mg of Ativan intranasally and 2 mg of Ativan IV with cessation of seizure-like activity. When I went to examine the patient, she is lying on her side with a nonrebreather mask on. She appears postictal and is not speaking. Therefore details of the HPI are limited due to her clinical condition. ED Past Medical Hx - Past Medical History Hx CVA: Yes Hx Seizures: Yes Additional medical history: meningitis - Surgical History Additional Surgical History: LEFT ARM / LEFT FINGERS AMPUTATED - Social History Smoking Status: Unknown if ever smoked - Medications Home Medications: Home Medications Medication Instructions Recorded Confirmed Last Taken Type predniSONE [Deltasone] 20 mg PO QDAY #3 tab 05/13/17 Unknown Rx Ibuprofen [Motrin 800 MG tab] 800 mg PO Q8HR PRN #30 tablet 11/04/18 Unknown Rx Vimpat 100 tab PO 02/26/19 Unknown History diphenhydrAMINE [Benadryl CAP] 25 mg PO Q8HR PRN 02/26/19 Unknown History oxyCODONE /ACETAMINOPHEN [Percocet 1 tab PO Q6HR PRN #30 tablet 02/27/19 Unknown Rx 5/325] Phenytoin [Dilantin] 100 mg PO Q8HR #90 capsule 07/10/20 Unknown Rx levETIRAcetam [Keppra TAB] 500 mg PO BID #60 tablet 07/10/20 Unknown Rx ED Review of Systems ROS: Stated complaint: SEIZURE Other details as noted in HPI Comment: Unobtainable due to pts medical conditions Physical Exam - Physical Exam Vital Signs: Vital Signs 03/05/21 03/05/21 03/05/21 12:10 12:26 12:30 Temperature 99.1 F Pulse Rate 103 H 98 H Respiratory 23 25 H Rate Blood Pressure Blood Pressure [Right] O2 Sat by Pulse 100 99 Oximetry 07/15/21 07/15/21 07/15/21 12:46 13:00 13:15 Temperature Pulse Rate 115 H 109 H 104 H Respiratory 29 H 27 H 26 H Rate Blood Pressure 97/46 97/46 89/55 Blood Pressure [Right] O2 Sat by Pulse 98 98 98 Oximetry 03/05/21 03/05/21 03/05/21 13:30 13:46 14:10 Temperature Pulse Rate 106 H Respiratory 25 H Rate Blood Pressure 95/45 95/45 98/61 Blood Pressure [Right] O2 Sat by Pulse 100 93 100 Oximetry 03/05/21 03/05/21 03/05/21 14:16 14:30 14:46 Temperature Pulse Rate Respiratory Rate Blood Pressure 98/61 105/83 105/83 Blood Pressure [Right] O2 Sat by Pulse 98 81 L 100 Oximetry 03/05/21 03/05/21 03/05/21 15:00 15:16 15:30 Temperature Pulse Rate Respiratory Rate Blood Pressure 64/38 95/45 110/72 Blood Pressure [Right] O2 Sat by Pulse 100 94 94 Oximetry 03/05/21 03/05/21 03/05/21 15:46 16:00 16:16 Temperature Pulse Rate Respiratory Rate Blood Pressure 110/72 114/71 114/71 Blood Pressure [Right] O2 Sat by Pulse 90 95 84 Oximetry 03/05/21 03/05/21 03/05/21 16:30 16:46 17:00 Temperature Pulse Rate Respiratory Rate Blood Pressure 109/66 109/66 109/66 Blood Pressure [Right] O2 Sat by Pulse Oximetry 03/05/21 03/05/21 03/05/21 17:25 17:44 17:46 Temperature Pulse Rate Respiratory Rate Blood Pressure 107/65 107/65 107/65 Blood Pressure [Right] O2 Sat by Pulse 100 96 Oximetry 03/05/21 03/05/21 03/05/21 18:06 18:19 18:29 Temperature 100.2 F H Pulse Rate 92 H Respiratory 16 Rate Blood Pressure 107/65 86/45 Blood Pressure 101/55 [Right] O2 Sat by Pulse 76 L 100 Oximetry 03/05/21 03/05/21 03/05/21 18:30 18:46 19:25 Temperature Pulse Rate Respiratory Rate Blood Pressure 101/55 101/55 97/50 Blood Pressure [Right] O2 Sat by Pulse 99 99 Oximetry 03/05/21 03/05/21 19:30 19:46 Temperature Pulse Rate Respiratory Rate Blood Pressure 97/50 97/50 Blood Pressure [Right] O2 Sat by Pulse 100 100 Oximetry Physical Exam: GENERAL: Well developed and well nourished. Very somnolent, nonverbal HEENT: Normocephalic. No obvious signs of trauma. Moist mucous membranes. Very poor oral dentiiton. No large lacerations seen EYES: Pupils are equal round and reactive to light bilaterally NECK: Supple. Trachea is midline. LUNGS: Nonlabored breathing. Equal chest rise bilaterally. Clear to auscultation bilaterally. HEART/CARDIOVASCULAR: Tachycardic but with regular rhythm. No murmurs or rubs. VASCULAR: Cap refill < 2 seconds ABDOMEN: Abdomen is soft and nondistended. There is no significant tenderness, guarding or rebound. SKIN: Skin is warm and dry NEURO: Patient is very somnolent and nonverbal. Unable to participate in n eurologic exam due to condition. No significant rigidity and 2+ patellar reflexes. MUSCULOSKELETAL: Partial left hand amputation noted. No obvious deformities. No significant tenderness. ED Medical Decision Making - Lab Data Result diagrams: 03/05/21 14:39 03/05/21 14:39 Labs 03/05/21 03/05/21 03/05/21 14:39 14:39 14:39 WBC 13.3 H RBC 3.90 Hgb 12.9 Hct 39.1 MCV 100 H MCH 33 H MCHC 33 RDW 13.7 Plt Count 213 Add Manual Diff Complete Total Counted 100 Seg Neutrophils % Parliamentary Archivist Seg Neuts % (Manual) 92.0 H Lymphocytes % (Manual) 4.0 L Monocytes % (Manual) 4.0 Nucleated RBC % Not Reportable Seg Neutrophils # Man 12.2 H Band Neutrophils # 0.0 Lymphocytes # (Manual) 0.5 L Abs React Lymphs (Man) 0.0 Monocytes # (Manual) 0.5 Eosinophils # (Manual) 0.0 Basophils # (Manual) 0.0 Metamyelocytes # 0.0 Myelocytes # 0.0 Promyelocytes # 0.0 Blast Cells # 0.0 WBC Morphology Not Reportable Hypersegmented Neuts Not Reportable Hyposegmented Neuts Not Reportable Hypogranular Neuts Not Reportable Smudge Cells Not Reportable Toxic Granulation 1+ Toxic Vacuolation Few Dohle Bodies Not Reportable Pelger-Huet Anomaly Not Reportable Riana Rods Not Reportable Platelet Estimate Consistent w auto Clumped Platelets Not Reportable Plt Clumps, EDTA Not Reportable Large Platelets Not Reportable Giant Platelets Not Reportable Platelet Satelliting Not Reportable Plt Morphology Comment Not Reportable RBC Morphology Normal Dimorphic RBCs Not Reportable Polychromasia Not Reportable Hypochromasia Not Reportable Poikilocytosis Not Reportable Anisocytosis Not Reportable Microcytosis Not Reportable Macrocytosis Not Reportable Spherocytes Not Reportable Pappenheimer Bodies Not Reportable Sickle Cells Not Reportable Target Cells Not Reportable Tear Drop Cells Not Reportable Ovalocytes Not Reportable Helmet Cells Not Reportable Velazquez-[place] Bodies Not Reportable [place] Rings Not Reportable Gantt Cells Not Reportable Bite Cells Not Reportable Crenated Cell Not Reportable Elliptocytes Not Reportable Acanthocytes (Spur) Not Reportable Rouleaux Not Reportable Hemoglobin C Crystals Not Reportable Schistocytes Not Reportable Malaria parasites Not Reportable Chepe Bodies Not Reportable Hem Pathologist Commnt No PT 15.1 H INR 1.14 H APTT 21.3 L Sodium 138 Potassium 4.6 Chloride 105.2 Carbon Dioxide 17 L Anion Gap 20 BUN 10 Creatinine 0.9 Estimated GFR > 60 BUN/Creatinine Ratio 11 Glucose 105 H Calcium 8.5 Magnesium 2.10 Total Bilirubin 0.20 Direct Bilirubin < 0.2 Indirect Bilirubin 0.0 AST 20 ALT < 5 L Alkaline Phosphatase 34 L Ammonia Total Creatine Kinase 581 H Total Protein 6.4 Albumin 4.0 Albumin/Globulin Ratio 1.7 HCG, Qual Salicylates Acetaminophen Valproic Acid 03/05/21 03/05/21 03/05/21 14:39 14:39 14:39 WBC RBC Hgb Hct MCV MCH MCHC RDW Plt Count Add Manual Diff Total Counted Seg Neutrophils % Seg Neuts % (Manual) Lymphocytes % (Manual) Monocytes % (Manual) Nucleated RBC % Seg Neutrophils # Man Band Neutrophils # Lymphocytes # (Manual) Abs React Lymphs (Man) Monocytes # (Manual) Eosinophils # (Manual) Basophils # (Manual) Metamyelocytes # Myelocytes # Promyelocytes # Blast Cells # WBC Morphology Hypersegmented Neuts Hyposegmented Neuts Hypogranular Neuts Smudge Cells Toxic Granulation Toxic Vacuolation Dohle Bodies Pelger-Huet Anomaly Riana Rods Platelet Estimate Clumped Platelets Plt Clumps, EDTA Large Platelets Giant Platelets Platelet Satelliting Plt Morphology Comment RBC Morphology Dimorphic RBCs Polychromasia Hypochromasia Poikilocytosis Anisocytosis Microcytosis Macrocytosis Spherocytes Pappenheimer Bodies Sickle Cells Target Cells Tear Drop Cells Ovalocytes Helmet Cells Velazquez-[place] Bodies [place] Rings Benny Cells Bite Cells Crenated Cell Elliptocytes Acanthocytes (Spur) Rouleaux Hemoglobin C Crystals Schistocytes Malaria parasites Chepe Bodies Hem Pathologist Commnt PT INR APTT Sodium Potassium Chloride Carbon Dioxide Anion Gap BUN Creatinine Estimated GFR BUN/Creatinine Ratio Glucose Calcium Magnesium Total Bilirubin Direct Bilirubin Indirect Bilirubin AST ALT Alkaline Phosphatase Ammonia 80.0 H Total Creatine Kinase Total Protein Albumin Albumin/Globulin Ratio HCG, Qual Salicylates 0.3 L Acetaminophen 5.0 L Valproic Acid 03/05/21 03/05/21 14:39 14:39 WBC RBC Hgb Hct MCV MCH MCHC RDW Plt Count Add Manual Diff Total Counted Seg Neutrophils % Seg Neuts % (Manual) Lymphocytes % (Manual) Monocytes % (Manual) Nucleated RBC % Seg Neutrophils # Man Band Neutrophils # Lymphocytes # (Manual) Abs React Lymphs (Man) Monocytes # (Manual) Eosinophils # (Manual) Basophils # (Manual) Metamyelocytes # Myelocytes # Promyelocytes # Blast Cells # WBC Morphology Hypersegmented Neuts Hyposegmented Neuts Hypogranular Neuts Smudge Cells Toxic Granulation Toxic Vacuolation Dohle Bodies Pelger-Huet Anomaly Riana Rods Platelet Estimate Clumped Platelets Plt Clumps, EDTA Large Platelets Giant Platelets Platelet Satelliting Plt Morphology Comment RBC Morphology Dimorphic RBCs Polychromasia Hypochromasia Poikilocytosis Anisocytosis Microcytosis Macrocytosis Spherocytes Pappenheimer Bodies Sickle Cells Target Cells Tear Drop Cells Ovalocytes Helmet Cells Velazquez-Rose [place] Bodies [place] Rings Gantt Cells Bite Cells Crenated Cell Elliptocytes Acanthocytes (Spur) Rouleaux Hemoglobin C Crystals Schistocytes Malaria parasites Chepe Bodies Hem Pathologist Commnt PT INR APTT Sodium Potassium Chloride Carbon Dioxide Anion Gap BUN Creatinine Estimated GFR BUN/Creatinine Ratio Glucose Calcium Magnesium Total Bilirubin Direct Bilirubin Indirect Bilirubin AST ALT Alkaline Phosphatase Ammonia Total Creatine Kinase Total Protein Albumin Albumin/Globulin Ratio HCG, Qual Negative Salicylates Acetaminophen Valproic Acid < 2.8 L - Radiology Data CT BRAIN: 03/05/2021 INDICATION / CLINICAL INFORMATION: Seizures. COMPARISON: None available. FINDINGS: BRAIN/INTRACRANIAL STRUCTURES: Unenhanced CT images of the brain demonstrate no evidence of acute intracranial abnormality. Vent ricles and sulci are normal in size and shape for a patient of this age. There is no evidence of ischemic injury, hemorrhage, or mass. There are no abnormal extra-axial fluid collections. There is no significant change when compared to the prior exam. EXTRACRANIAL STRUCTURES: Unremarkable. IMPRESSION: No acute abnormality. All CT scans at this location are performed using dose reduction to ALARA by means of automated exposure control. 03/05/2021 Signer Name: Luis Samuel MD Signed: 03/05/2021 1:33 PM Workstation Name: [id number] - Medical Decision Making 30-year-old female with history of seizure disorder noncompliant with prescribed medications is brought in by EMS after reportedly having 8 seizures at home. The patient arrived with her home medications which are Keppra 500 mg twice daily and gabapentin 100 mg 3 times daily. The prescriptions are from October and still have a lot of the pills, which suggest that the patient is noncompliant with her prescribed regimen. While in the hallway after arriving at the emergency department, the patient was noted to have a convulsive seizure and was given 2 mg of IV Ativan with resolution of her seizure. When I went and examined the patient she appears postictal and is extremely somnolent and nonverbal. Her vital signs are within normal limits with the exception of mild tachycardia. Review of the patient's past medical records reveals that she has frequent presentations which are almost identical to the present presentation. She typically comes in after having multiple seizures, has a prolonged postictal period and then regains lucidity and becomes combative and confused. Nonetheless we will perform work-up with a full set of labs and CT of the head. We will give 1000 mg of IV Keppra loading dose and 1 L of IV fluids. She will be kept on a color television console monitor with continuous pulse oximetry and monitor very closely. On repeat assessment at 2:15 PM, the patient remains confused but is now clearly moving volitionally and withdrawing from pain as well as attempt to draw blood. On repeat assessment again at 2:40 PM, the patient is now fully conscious and speaking in coherent sentences. However she remains confused and agitated and when left alone falls back asleep. Her oxygen saturation and vital signs remained stable. CT of the head reveals no acute abnormalities. At 4:20 PM, the labs fully resulted and reveal mild leukocytosis of 13.3, which is not surprising given presentation with multiple seizures and likely physiologic stress reaction, hemoglobin of 12.9. Kidney function is normal and there are no significant electrolyte abnormalities. However, patient is noted to have an elevated ammonia level of 80 as well as mildly elevated coags and CK of 581. She did not not have transaminitis or any other significant abnormalities on the hepatic function panel. When I went to reassess the patient at 4:25 PM, she is now fully conscious and able to answer questions with yes or no or very short sentences but is still extremely somnolent and obviously confused. Given the prolonged nature of her presentation along with unexplained elevated ammonia we will plan to admit the patient for further work- up/management and observation. We will also order a valproic acid level At 4:48 PM , I spoke with Dr. Maldonado, the on-call hospitalist who accepts the patient for admission and will assume care Critical Care Time: Yes Critical care time in (mins) excluding proc time.: 45 Critical care attestation.: If time is entered above; I have spent that time in minutes in the direct care of this critically ill patient, excluding procedure time. Critical care time was spent in the evaluation/assessment, work-up, and management of altered mental status and seizure requiring IV rescue medications and IV Keppra as well as continuous observation frequent reassessment. ED Disposition Clinical Impression: Seizure, Altered mental status, Increased ammonia level Disposition: OP ADMIT IP TO THIS HOSP Is pt being admited?: Yes Condition: Stable
--- NOTE | 2021-03-05 14:38 | Cat Scan Report ---
CT BRAIN: 03/05/2021 INDICATION / CLINICAL INFORMATION: Seizures. COMPARISON: None available. FINDINGS: BRAIN/INTRACRANIAL STRUCTURES: Unenhanced CT images of the brain demonstrate no evidence of acute int racranial abnormality. Ventricles and sulci are normal in size and shape for a patient of this age. There is no evidence of ischemic injury, hemorrhage, or mass. There are no abnormal extra-axial fluid collections. There is no significant change when compared to the prior exam. EXTRACRANIAL STRUCTURES: Unremarkable. IMPRESSION: No acute abnormality. All CT scans at this location are performed using dose reduction to ALARA by means of automated expos ure control. 03/05/2021 Signer Name: Luis Samuel MD Signed: 03/05/2021 2:33 PM Workstation Name: [id number]
[2021-03-05 15:11] LABS: Hematocrit 39.1 % (30.3-42.9); Hemoglobin 12.9 gm/dl (10.1-14.3); Mean Corpuscular HGB Conc 33 % (30-34); Mean Corpuscular Volume 100 fl (79-97); Platelet Count 213 K/mm3 (140-440); Red Cell Distribution Width 13.7 % (13.2-15.2)
[2021-03-05 15:18] LABS: INR 1.14 (0.87-1.13); Partial Thromboplastin Time 21.3 Sec. (24.2-36.6)
[2021-03-05 16:08] LABS: Total Cells Counted 100
[2021-03-05 16:09] LABS: Platelet Estimate Consistent w Auto; RBC Morphology Normal; Toxic Granulation 1+; Toxic Vacuolation Few
[2021-03-05 16:14] LABS: BUN/Creatinine Ratio 11; Blood Urea Nitrogen 10 mg/dL (7-17); Calcium 8.5 mg/dL (8.4-10.2); Hemolysis Index 47
[2021-03-05 16:15] LABS: Alanine Aminotransferase < 5 units/L (7-56); Bilirubin,Direct < 0.2 mg/dL (0-0.2)
[2021-03-05] MEDS ORDERED: ACETAMINOPHEN 650 MG RECT SUPP PR PRN (18:36)
[2021-03-06] MEDS ORDERED: oxyCODONE /ACETAMINOPHEN 5-325MG TAB PO PRN (00:08)
--- NOTE | 2021-03-06 00:09 | History and Physical Report ---
History of Present Illness Date of examination: 03/05/21 Date of admission: 03/05/21 16:49 Chief complaint: Continue seizures since a.m. History of present illness: 30-year-old female with history of seizure disorder and noncompliance brought in by EMS for continued seizures since 3 AM. As per the patient's father patient reportedly seized about 8 times. In the emergency room patient was postictal confused and combative. Patient has not been taking her medications. Patient is very noncompliant. In the EMS patient had to generalized seizures and was given 2 mg of Ativan IV. In the emergency room patient is post ictal and altered sensorium. Patient being admitted because of the post ictal state. - Past Medical History --CVA: Yes --Seizures: Yes Additional medical history: meningitis - Surgical History Additional Surgical History: LEFT ARM / LEFT FINGERS AMPUTATED - Social History Smoking Status: Unknown if ever smoked - Medications Home Medications: Home Medications Medication Instructions Recorded Confirmed Last Taken Type predniSONE [Deltasone] 20 mg PO QDAY #3 tab 05/13/17 Unknown Rx Ibuprofen [Motrin 800 MG tab] 800 mg PO Q8HR PRN #30 tablet 11/04/18 Unknown Rx Vimpat 100 tab PO 02/26/19 Unknown History diphenhydrAMINE [Benadryl CAP] 25 mg PO Q8HR PRN 02/26/19 Unknown History oxyCODONE /ACETAMINOPHEN [Percocet 1 tab PO Q6HR PRN #30 tablet 02/27/19 Unknown Rx 5/325] Phenytoin [Dilantin] 100 mg PO Q8HR #90 capsule 07/10/20 Unknown Rx levETIRAcetam [Keppra TAB] 500 mg PO BID #60 tablet 07/10/20 Unknown Rx --Review of Systems ROS: Stated complaint: SEIZURE Other details as noted in HPI patient is postictal and decreased responsiveness. Comment: Unobtainable due to pts medical conditions Medications and Allergies Allergies Allergy/AdvReac Type Severity Reaction Status Date / Time No Known Allergies Allergy Verified 02/10/18 20:59 Home Medications Medication Instructions Recorded Confirmed Last Taken Type predniSONE [Deltasone] 20 mg PO QDAY #3 tab 05/13/17 Unknown Rx Ibuprofen [Motrin 800 MG tab] 800 mg PO Q8HR PRN #30 tablet 11/04/18 Unknown Rx Vimpat 100 tab PO 02/26/19 Unknown History diphenhydrAMINE [Benadryl CAP] 25 mg PO Q8HR PRN 02/26/19 Unknown History oxyCODONE /ACETAMINOPHEN [Percocet 1 tab PO Q6HR PRN #30 tablet 02/27/19 Unknown Rx 5/325] Phenytoin [Dilantin] 100 mg PO Q8HR #90 capsule 07/10/20 03/05/21 03/03/21 17:00 Rx levETIRAcetam [Keppra TAB] 500 mg PO BID #60 tablet 07/10/20 Unknown Rx Active Meds: Active Medications Acetaminophen (Acetaminophen 650 Mg Rect Supp) 650 mg VA Q6H PRN PRN Reason: Pain, Mild (1-3) Last Admin: 03/05/21 18:40 Dose: 650 mg Documented by: Exam - Constitutional Vitals: Temp Pulse Resp BP Pulse Ox 100.2 F H 92 H 16 94/56 96 03/05/21 18:29 03/05/21 18:29 03/05/21 20:00 03/05/21 21:54 03/05/21 21:16 General appearance: Present: no acute distress, well-nourished - EENT Eyes: Present: PERRL ENT: hearing intact, clear oral mucosa - Neck Neck: Present: supple, normal ROM - Respiratory Respiratory effort: normal Respiratory: bilateral: CTA - Cardiovascular Heart rate: 78 Rhythm: regular Heart Sounds: Present: S1 & S2. Absent: rub, click - Extremities Extremities: pulses symmetrical, No edema Peripheral Pulses: within normal limits - Abdominal General gastrointestinal: Present: soft, non-tender, non-distended, normal bowel sounds Female genitourinary: Present: normal - Integumentary Integumentary: Present: clear, warm, dry - Musculoskeletal Musculoskeletal: gait normal, strength equal bilaterally - Psychiatric Psychiatric: other (Patient with decreased responsiveness) - Neurologic Neurologic: CNII-XII intact, moves all extremities, other (Patient with decreased responsiveness) - Allied Health Allied health notes reviewed: nursing, case management Results - Labs CBC & Chem 7: 03/05/21 14:39 03/05/21 14:39 Labs: Laboratory Last Values WBC 13.3 K/mm3 (4.5-11.0) H 03/05/21 14:39 RBC 3.90 M/mm3 (3.65-5.03) 03/05/21 14:39 Hgb 12.9 gm/dl (10.1-14.3) 03/05/21 14:39 Hct 39.1 % (30.3-42.9) 03/05/21 14:39 MCV 100 fl (79-97) H 03/05/21 14:39 MCH 33 pg (28-32) H 03/05/21 14:39 MCHC 33 % (30-34) 03/05/21 14:39 RDW 13.7 % (13.2-15.2) 03/05/21 14:39 Plt Count 213 K/mm3 (140-440) 03/05/21 14:39 Add Manual Diff Complete 03/05/21 14:39 Total Counted 100 03/05/21 14:39 Seg Neutrophils % Paste Worker 03/05/21 14:39 Seg Neuts % (Manual) 92.0 % (40.0-70.0) H 03/05/21 14:39 Lymphocytes % (Manual) 4.0 % (13.4-35.0) L 03/05/21 14:39 Monocytes % (Manual) 4.0 % (0.0-7.3) 03/05/21 14:39 Nucleated RBC % Not Reportable 03/05/21 14:39 Seg Neutrophils # Man 12.2 K/mm3 (1.8-7.7) H 03/05/21 14:39 Band Neutrophils # 0.0 K/mm3 03/05/21 14:39 Lymphocytes # (Manual) 0.5 K/mm3 (1.2-5.4) L 03/05/21 14:39 Abs React Lymphs (Man) 0.0 K/mm3 03/05/21 14:39 Monocytes # (Manual) 0.5 K/mm3 (0.0-0.8) 03/05/21 14:39 Eosinophils # (Manual) 0.0 K/mm3 (0.0-0.4) 03/05/21 14:39 Basophils # (Manual) 0.0 K/mm3 (0.0-0.1) 03/05/21 14:39 Metamyelocytes # 0.0 K/mm3 03/05/21 14:39 Myelocytes # 0.0 K/mm3 03/05/21 14:39 Promyelocytes # 0.0 K/mm3 03/05/21 14:39 Blast Cells # 0.0 K/mm3 03/05/21 14:39 WBC Morphology Not Reportable 03/05/21 14:39 Hypersegmented Neuts Not Reportable 03/05/21 14:39 Hyposegmented Neuts Not Reportable 03/05/21 14:39 Hypogranular Neuts Not Reportable 03/05/21 14:39 Smudge Cells Not Reportable 03/05/21 14:39 Toxic Granulation 1+ 03/05/21 14:39 Toxic Vacuolation Few 03/05/21 14:39 Dohle Bodies Not Reportable 03/05/21 14:39 Pelger-Huet Anomaly Not Reportable 03/05/21 14:39 Riana Rods Not Reportable 03/05/21 14:39 Platelet Estimate Consistent w auto 03/05/21 14:39 Clumped Platelets Not Reportable 03/05/21 14:39 Plt Clumps, EDTA Not Reportable 03/05/21 14:39 Large Platelets Not Reportable 03/05/21 14:39 Giant Platelets Not Reportable 03/05/21 14:39 Platelet Satelliting Not Reportable 03/05/21 14:39 Plt Morphology Comment Not Reportable 03/05/21 14:39 RBC Morphology Normal 03/05/21 14:39 Dimorphic RBCs Not Reportable 03/05/21 14:39 Polychromasia Not Reportable 03/05/21 14:39 Hypochromasia Not Reportable 03/05/21 14:39 Poikilocytosis Not Reportable 03/05/21 14:39 Anisocytosis Not Reportable 03/05/21 14:39 Microcytosis Not Reportable 03/05/21 14:39 Macrocytosis Not Reportable 03/05/21 14:39 Spherocytes Not Reportable 03/05/21 14:39 Pappenheimer Bodies Not Reportable 03/05/21 14:39 Sickle Cells Not Reportable 03/05/21 14:39 Target Cells Not Reportable 03/05/21 14:39 Tear Drop Cells Not Reportable 03/05/21 14:39 Ovalocytes Not Reportable 03/05/21 14:39 Helmet Cells Not Reportable 03/05/21 14:39 Velazquez-Hopeton Bodies Not Reportable 03/05/21 14:39 Fifty Six Rings Not Reportable 03/05/21 14:39 Benny Cells Not Reportable 03/05/21 14:39 Bite Cells Not Reportable 03/05/21 14:39 Crenated Cell Not Reportable 03/05/21 14:39 Elliptocytes Not Reportable 03/05/21 14:39 Acanthocytes (Spur) Not Reportable 03/05/21 14:39 Rouleaux Not Reportable 03/05/21 14:39 Hemoglobin C Crystals Not Reportable 03/05/21 14:39 Schistocytes Not Reportable 03/05/21 14:39 Malaria parasites Not Reportable 03/05/21 14:39 Chepe Bodies Not Reportable 03/05/21 14:39 Hem Pathologist Commnt No 03/05/21 14:39 PT 15.1 Sec. (12.2-14.9) H 03/05/21 14:39 INR 1.14 (0.87-1.13) H 03/05/21 14:39 APTT 21.3 Sec. (24.2-36.6) L 03/05/21 14:39 Sodium 138 mmol/L (137-145) 03/05/21 14:39 Potassium 4.6 mmol/L (3.6-5.0) 03/05/21 14:39 Chloride 105.2 mmol/L (98-107) 03/05/21 14:39 Carbon Dioxide 17 mmol/L (22-30) L 03/05/21 14:39 Anion Gap 20 mmol/L 03/05/21 14:39 BUN 10 mg/dL (7-17) 03/05/21 14:39 Creatinine 0.9 mg/dL (0.6-1.2) 03/05/21 14:39 Estimated GFR > 60 ml/min 03/05/21 14:39 BUN/Creatinine Ratio 11 % 03/05/21 14:39 Glucose 105 mg/dL (65-100) H 03/05/21 14:39 Calcium 8.5 mg/dL (8.4-10.2) 03/05/21 14:39 Magnesium 2.10 mg/dL (1.7-2.3) 03/05/21 14:39 Total Bilirubin 0.20 mg/dL (0.1-1.2) 03/05/21 14:39 Direct Bilirubin < 0.2 mg/dL (0-0.2) 03/05/21 14:39 Indirect Bilirubin 0.0 mg/dL 03/05/21 14:39 AST 20 units/L (5-40) 03/05/21 14:39 ALT < 5 units/L (7-56) L 03/05/21 14:39 Alkaline Phosphatase 34 units/L (35-129) L 03/05/21 14:39 Ammonia 80.0 umol/L (25-60) H 03/05/21 14:39 Total Creatine Kinase 581 units/L (30-135) H 03/05/21 14:39 Total Protein 6.4 g/dL (6.3-8.2) 03/05/21 14:39 Albumin 4.0 g/dL (3.9-5) 03/05/21 14:39 Albumin/Globulin Ratio 1.7 % 03/05/21 14:39 HCG, Qual Negative (Negative) 03/05/21 14:39 Salicylates 0.3 mg/dL (2.8-20.0) L 03/05/21 14:39 Acetaminophen 5.0 ug/mL (10.0-30.0) L 03/05/21 14:39 Valproic Acid < 2.8 ug/mL (50-100) L 03/05/21 14:39 Short CBC 03/05/21 Range/Units 14:39 WBC 13.3 H (4.5-11.0) K/mm3 Hgb 12.9 (10.1-14.3) gm/dl Hct 39.1 (30.3-42.9) % Plt Count 213 (140-440) K/mm3 [facility] 03/05/21 14:39 Sodium 138 Potassium 4.6 Chloride 105.2 Carbon Dioxide 17 L BUN 10 Creatinine 0.9 Glucose 105 H Calcium 8.5 Cardiac Enzymes 03/05/21 Range/Units 14:39 Total Creatine Kinase 581 H (30-135) units/L Liver Function 03/05/21 Range/Units 14:39 Total Bilirubin 0.20 (0.1-1.2) mg/dL Direct Bilirubin < 0.2 (0-0.2) mg/dL AST 20 (5-40) units/L ALT < 5 L (7-56) units/L Alkaline Phosphatase 34 L (35-129) units/L Albumin 4.0 (3.9-5) g/dL Assessment and Plan Advance Directives: Yes (Full code) VTE prophylaxis?: Chemical Plan of care discussed with patient/family: Yes - Patient Problems (1) Acute encephalopathy Current Visit: Yes Status: Acute Plan to address problem: Secondary to persistent seizures and postictal state patient to be counseled about compliance with antiepileptic medications (2) Status epilepticus Current Visit: No Status: Acute Plan to address problem: Patient initiated on IV Keppra and Vimpat. Phenytoin to be discontinued because of her noncompliance side effects of phenytoin patient to be discharged on Keppra and Vimpat neurology consult also requested (3) Increased ammonia level Current Visit: Yes Status: Acute Plan to address problem: Nonspecific we will repeat the ammonia level (4) DVT prophylaxis Current Visit: Yes Status: Acute Plan to address problem: On heparin and GI prophylaxis
[2021-03-06] MEDS ORDERED: ONDANSETRON 4 MG/2 ML INJ IV PRN (00:14)
[2021-03-06] MEDS ORDERED: ACETAMINOPHEN 325 MG TAB PO PRN (00:14)
[2021-03-06] MEDS ORDERED: HYDROmorphone 1 MG/1 ML INJ IV PRN (00:14)
[2021-03-06] MEDS ORDERED: METOCLOPRAMIDE 10 MG/2 ML INJ IV PRN (00:14)
[2021-03-06] MEDS ORDERED: VIMPAT PO SCH (00:15)
[2021-03-06] MEDS: levETIRAcetam 750 MG in DEXTROSE 5% IN WATER 100 ML IV SCH ×2 (01:23→12:59)
[2021-03-06] MEDS: LACOSAMIDE 100 MG TAB PO SCH ×2 (01:28→10:33)
[2021-03-06] MEDS: SODIUM CHLORIDE 0.9% 1000 ML 1,000 ML IV SCH ×2 (01:29→10:37)
--- NOTE | 2021-03-06 08:29 | Consultation ---
History of Present Illness Consult date: 03/06/21 Reason for Consult: recurrent seizure and hx of none compliance with medication History of present illness: Chief complaint: Continue seizures since a.m. History of present illness: 30-year-old female with history of seizure disorder and noncompliance she is with hx of seizure since child bruner , no family hx of seizure she discripes aura at time and toungue bitting , she is feeling sore all over according to her she stopped taking her medication some time because it does not work !! and give her side effect feel tired she take weed it is more effective for seizure !!! brought in by EMS for continued seizures since 3 AM. As per the patient's father patient reportedly seized about 8 times. In the emergency room patient was postictal confused and combative. Patient has not been taking her medications. Patient is very noncompliant. In the EMS patient had to generalized seizures and was given 2 mg of Ativan IV. In the emergency room patient is post ictal and altered sensorium. Patient being admitted because of the post ictal state. According to pt. she is depressed due to trouble with the law, she is on probation and had to pay the city 200$ a month . she does not drive or drink but smokes weed Ct brain is unremarkable [id number] - Past Medical History --CVA: Yes --Seizures: Yes Additional medical history: meningitis - Surgical History Additional Surgical History: LEFT ARM / LEFT FINGERS AMPUTATED - Social History Smoking Status: Unknown if ever smoked - Medications Home Medications: Home Medications Medication Instructions Recorded Confirmed Last Taken Type predniSONE [Deltasone] 20 mg PO QDAY #3 tab 05/13/17 Unknown Rx Ibuprofen [Motrin 800 MG tab] 800 mg PO Q8HR PRN #30 tablet 11/04/18 Unknown Rx Vimpat 100 tab PO 02/26/19 Unknown History diphenhydrAMINE [Benadryl CAP] 25 mg PO Q8HR PRN 02/26/19 Unknown History oxyCODONE /ACETAMINOPHEN [Percocet 1 tab PO Q6HR PRN #30 tablet 02/27/19 Unknown Rx 5/325] Phenytoin [Dilantin] 100 mg PO Q8HR #90 capsule 07/10/20 Unknown Rx levETIRAcetam [Keppra TAB] 500 mg PO BID #60 tablet 07/10/20 Unknown Rx --Review of Systems ROS: Stated complaint: SEIZURE Other details as noted in HPI patient is postictal and decreased responsiveness. Comment: Unobtainable due to pts medical conditions Medications and Allergies Allergies Allergy/AdvReac Type Severity Reaction Status Date / Time No Known Allergies Allergy Verified 02/10/18 20:59 Home Medications Medication Instructions Recorded Confirmed Last Taken Type predniSONE [Deltasone] 20 mg PO QDAY #3 tab 05/13/17 Unknown Rx Ibuprofen [Motrin 800 MG tab] 800 mg PO Q8HR PRN #30 tablet 11/04/18 Unknown Rx Vimpat 100 tab PO 02/26/19 Unknown History diphenhydrAMINE [Benadryl CAP] 25 mg PO Q8HR PRN 02/26/19 Unknown History oxyCODONE /ACETAMINOPHEN [Percocet 1 tab PO Q6HR PRN #30 tablet 02/27/19 Unknown Rx 5/325] Phenytoin [Dilantin] 100 mg PO Q8HR #90 capsule 07/10/20 03/05/21 03/03/21 17:00 Rx levETIRAcetam [Keppra TAB] 500 mg PO BID #60 tablet 07/10/20 Unknown Rx Active Meds: Active Medications Acetaminophen (Acetaminophen 650 Mg Rect Supp) 650 mg [place] Q6H PRN PRN Reason: Pain, Mild (1-3) Last Admin: 03/05/21 18:40 Dose: 650 mg Documented by: Medications and Allergies Allergies Allergy/AdvReac Type Severity Reaction Status Date / Time No Known Allergies Allergy Verified 02/10/18 20:59 Home Medications Medication Instructions Recorded Confirmed Last Taken Type predniSONE [Deltasone] 20 mg PO QDAY #3 tab 05/13/17 Unknown Rx Ibuprofen [Motrin 800 MG tab] 800 mg PO Q8HR PRN #30 tablet 11/04/18 Unknown Rx diphenhydrAMINE [Benadryl CAP] 25 mg PO Q8HR PRN 02/26/19 Unknown History Lacosamide [Vimpat] 100 mg PO BID 30 Days tablet 03/06/21 Unknown Rx levETIRAcetam [Keppra TAB] 500 mg PO BID 30 Days #60 tablet 03/06/21 Unknown Rx Active Meds: Active Medications Acetaminophen (Acetaminophen 325 Mg Tab) 650 mg PO Q4H PRN PRN Reason: Pain MILD(1-3)/Fever >100.5/CHAVEZ Famotidine (Famotidine 20 Mg Tab) 20 mg PO BID [facility] Heparin Sodium (Porcine) (Heparin 5,000 Unit/1 Ml Vial) 5,000 unit SUB-Q Q12HR [facility] Hydromorphone HCl (Hydromorphone 1 Mg/1 Ml Inj) 0.5 mg IV Q3H PRN PRN Reason: Pain , Severe (7-10) Sodium Chloride (Nacl 0.9% 1000 Ml) 1,000 mls @ 100 mls/hr IV DIRECT [facility] Last Admin: 03/06/21 01:29 Dose: 100 mls/hr Documented by: Levetiracetam 750 mg/ Dextrose 107.5 mls @ 400 mls/hr IV Q12H [facility] Last Admin: 03/06/21 01:23 Dose: 400 mls/hr Documented by: Lacosamide (Lacosamide 100 Mg Tab) 100 mg PO BID [facility] Last Admin: 03/06/21 01:28 Dose: 100 mg Documented by: Metoclopramide HCl (Metoclopramide 10 Mg/2 Ml Inj) 10 mg IV Q6H PRN PRN Reason: Nausea And Vomiting Ondansetron HCl (Ondansetron 4 Mg/2 Ml Inj) 4 mg IV Q8H PRN PRN Reason: Nausea And Vomiting Oxycodone/Acetaminophen (Oxycodone /Acetaminophen 5-325mg Tab) 1 tab PO Q6HR P RN PRN Reason: PAIN Sodium Chloride (Sodium Chloride 0.9% 10 Ml Flush Syringe) 10 ml IV BID [facility] Sodium Chloride (Sodium Chloride 0.9% 10 Ml Flush Syringe) 10 ml IV PRN PRN PRN Reason: LINE FLUSH Physical Examination - Vital Signs Vital Signs: Vital Signs Temp 99.1 F 03/05/21 12:10 - Constitutional General appearance: comfortable - EENT EENT: Present: PERRL, mucous membranes moist - Respiratory Respiratory: Present: chest non-tender, lungs clear, rhonchi - Cardiovascular Cardiovascular: Present: regular rate, normal S1, normal S2 Extremities: Present: no peripheral edema bilatateraly, no clubbing, cyanosis - Gastrointestinal Gastrointestinal: Present: normoactive bowel sounds - Integumentary Integumentary: Present: normal - Neurologic Cranial nerve examination: PERRL, EOMI, intact, other (tongue sore right side) Detailed motor examination: grossly full strength in (sore all over and left hand amputee, disfigured ) Results - Laboratory Findings CBC and BMP: 03/05/21 14:39 03/05/21 14:39 Abnormal Lab Findings: Abnormal Labs 03/05/21 03/05/21 03/05/21 14:39 14:39 14:39 WBC 13.3 H MCV 100 H MCH 33 H Seg Neuts % (Manual) 92.0 H Lymphocytes % (Manual) 4.0 L Seg Neutrophils # Man 12.2 H Lymphocytes # (Manual) 0.5 L PT 15.1 H INR 1.14 H APTT 21.3 L Carbon Dioxide 17 L Glucose 105 H ALT < 5 L Alkaline Phosphatase 34 L Ammonia Total Creatine Kinase 581 H Salicylates Acetaminophen Valproic Acid 03/05/21 03/05/21 03/05/21 14:39 14:39 14:39 WBC MCV MCH Seg Neuts % (Manual) Lymphocytes % (Manual) Seg Neutrophils # Man Lymphocytes # (Manual) PT INR APTT Carbon Dioxide Glucose ALT Alkaline Phosphatase Ammonia 80.0 H Total Creatine Kinase Salicylates 0.3 L Acetaminophen 5.0 L Valproic Acid 03/05/21 14:39 WBC MCV MCH Seg Neuts % (Manual) Lymphocytes % (Manual) Seg Neutrophils # Man Lymphocytes # (Manual) PT INR APTT Carbon Dioxide Glucose ALT Alkaline Phosphatase Ammonia Total Creatine Kinase Salicylates Acetaminophen Valproic Acid < 2.8 L Assessment and Plan Assessment and Plan Advance Directives: Yes (Full code) VTE prophylaxis?: Chemical Plan of care discussed with patient/family: Yes - Patient Problems # Acute encephalopathy -Secondary to persistent seizures and postictal state -patient to be counseled about compliance with antiepileptic medications -currently alert oriented -NONE compliance with medication -weed intake -complain of side effect of medications ??? -will be restarted on vimpat 150 mg bid -Keppra 1000 mg bid -stop weed -Brain MRI with gd -EEG -Ativan prn for seizure -Seizure precaution # Recurrent seizure related to non compliance -Patient initiated on IV Keppra and Vimpat. -Phenytoin to be discontinued because of her noncompliance side effects of phenytoin -patient to be discharged on [id number] mg bid and Vimpat 150 mg bid # Depression - try celexa 20 mg daily -Neurology follow up -she refused to see psychiatry -stop weed # Increased ammonia level -Nonspecific -we will repeat the ammonia level # DVT prophylaxis -On heparin and GI prophylaxis will follow
[2021-03-06] MEDS ORDERED: HEPARIN 5,000 UNIT/1 ML VIAL SUB-Q SCH (10:00)
[2021-03-06] MEDS ORDERED: FAMOTIDINE 20 MG TAB PO SCH (10:00)
[2021-03-06] MEDS ORDERED: CITALOPRAM 20 MG TAB PO SCH (14:00)
--- NOTE | 2021-03-06 14:49 | Discharge Summary ---
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 As per the patient's father patient reportedly seized about 8 times. In the emergency room patient was postictal confused and combative. Patient has not been taking her medications. Patient is very noncompliant. In the EMS patient had to generalized seizures and was given 2 mg of Ativan IV. In the emergency room patient is post ictal and altered sensorium. Patient being admitted because of the post ictal state. Hospital Course: Patient was admitted for seizure secondary to medication noncompliance. Patient was started on antiepileptic medication this hospital admission. Will be discharged today on prescriptions for Vimpat and Keppra and instructions to follow-up with her neurologist at [place]. Disposition: DC-01 TO HOME OR SELFCARE Final Discharge Diagnosis (Prints w/discharge instructions): Status Epilepticus Time spent for discharge: 35 Core Measure Documentation - Palliative Care Palliative Care/ Comfort Measures: Not Applicable - Core Measures Any of the following diagnoses?: none Exam - Physical Exam Narrative exam: Physical Exam: GENERAL APPEARANCE: Well developed, well nourished, alert and cooperative, and appears to be in no acute distress. HEAD: normocephalic. EYES: PERRL, EOMI. Vision is grossly intact. EARS: No gross deformities NOSE: No nasal discharge. THROAT: Oral cavity and pharynx normal. No inflammation, swelling, exudate, or lesions. Teeth and gingiva in good general condition. NECK: Neck supple, non-tender without lymphadenopathy, masses or thyromegaly. CARDIAC: Normal S1 and S2. No S3, S4 or murmurs. Rhythm is regular. There is no peripheral edema, cyanosis or pallor. Extremities are warm and well perfused. Capillary refill is less than 2 seconds. No carotid bruits. LUNGS: Clear to auscultation and percussion without rales, rhonchi, wheezing or diminished breath sounds. ABDOMEN: Positive bowel sounds. Soft, nondistended, nontender. No guarding or rebound. No masses. MUSKULOSKELETAL: Adequately aligned spine. ROM intact spine and extremities. No joint erythema or tenderness. Normal muscular development. Normal gait. BACK: Examination of the spine reveals normal gait and posture EXTREMITIES: No significant deformity or joint abnormality. No edema. Peripheral pulses intact. No varicosities. NEUROLOGICAL: CN II-XII intact. Strength and sensation symmetric and intact throughout. Reflexes 2+ throughout. PSYCHIATRIC: The mental examination revealed the patient was oriented to person, place, and time. - Constitutional Vitals: Temp Pulse Resp BP Pulse Ox 97.9 F 97 H 18 101/66 95 03/06/21 04:17 03/06/21 04:17 03/06/21 04:17 03/06/21 04:17 03/06/21 04:17 Plan Activity: no driving until cleared by PCP, fall precautions Weight Bearing Status: Full Weight Bearing Diet: regular Plan of Treatment: Hailey Chan. You were admitted for a seizure. This was likely due to the fact that you were off of your medication prior to come to the hospital. We aborted the seizure with medicine and put you on antiepileptic medication. We will be discharging you from the hospital with prescriptions for your home Keppra and Vimpat. We recommend you do not operate a motor vehicle until cleared by your outpatient neurologist. Please follow-up with your neurologist at [facility]. Follow up with: PRIMARY CAREMD [Primary Care Provider] - 3-5 Days Prescriptions: levETIRAcetam [Keppra TAB] 500 mg PO BID 30 Days #60 tablet Lacosamide [Vimpat] 100 mg PO BID 30 Days tablet
--- NOTE | 2021-03-06 17:20 | Magnetic Resonance Report ---
MR brain wo/w con INDICATION / CLINICAL INFORMATION: 30 years Female; Seizure disorder. TECHNIQUE: Multiplanar, multisequence MR images of the brain were obtained. COMPARISON: The study is compared to the previous CT of 03/05/2021. FINDINGS: BRAIN / INTRACRANIAL CONTENTS: The motion symmetrically degrades the image quality. However, there ar e a few scattered small hyperintense foci involving cerebral white matter, particularly the frontal s ubcortical regions which is nonspecific in a patient this age. The findings may reflect mild microvas cular changes. The diffusion imaging reveals no evidence of acute infarction. There is incidental calcification along the anterior falx which correlates with the earlier CT. No ex tra-axial fluid collections or significant mass effect is identified. The ventricular system is appro priate in size and the hippocampi grossly demonstrate appropriate volume and signal intensity. Config uration. The motion particularly degrades the postcontrast sequences. However, no definitive intracra nial enhancing lesions are identified. CRANIOCERVICAL JUNCTION: No significant abnormality. 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 ORBITS: No significant abnormality of visualized orbits. SINUSES / MASTOIDS: There is minimal mucosal thickening along the posterior ethmoid air cells. ADDITIONAL FINDINGS: None. IMPRESSION: 1. There are a few scattered small hyperintense foci involving frontal white matter which are nonspec ific as described at. Otherwise, the MRI the brain is unremarkable without evidence of recent infarct ion or intracranial enhancing lesions. Signer Name: Jori Neil MD Signed: 03/06/2021 5:16 PM Workstation Name: [id number]
[2021-03-06 17:21] VITALS: BP 99/60
[2021-03-06] MEDS ORDERED: levETIRAcetam 1,000 MG in DEXTROSE 5% IN WATER 100 ML IV SCH (22:00)
[2021-03-06] MEDS ORDERED: LACOSAMIDE 100 MG TAB PO SCH (22:00)
== END 2021-03-06 20:35 | disposition home or self-care (01) ==
LOC: ED 12:03 → 3A 16:49
PROVIDERS: ADMIT Internal Medicine; ATTEND Internal Medicine
DX: G93.40 Encephalopathy, unspecified (principal); G40.909 Epilepsy, unspecified, not intractable, without status epilepticus; R41.82 Altered mental status, unspecified; E72.20 Disorder of urea cycle metabolism, unspecified; F32.9 Major depressive disorder, single episode, unspecified; Z79.899 Other long term (current) drug therapy; Z98.890 Other specified postprocedural states; Z91.19 Patient's noncompliance with other medical treatment and regimen
CPT/HCPCS: 36415; 70450; 70553; 80048; 80076; 80164; 82140; 82550; 83735; 84703; 85025; 85610; 85730; 95819; 96361; 96365; 96366; 96372; 99291; A9575; G0378; J1644; J1953; J7030; 80320; 85007; G0480

== ENCOUNTER 2021-07-10 13:21 | Emergency (ER) | payer MEDICAID ==
[2021-07-10] MEDS ORDERED: levETIRAcetam 1000 MG/NS 0.75% 1,000 MG/100 ML BAG IV ONE (13:29)
[2021-07-10] MEDS ORDERED: SODIUM CHLORIDE 0.9% 1000 ML 1,000 ML IV ONE (13:29)
--- NOTE | 2021-07-10 13:34 | Emergency Department Report ---
HPI - General Chief Complaint: Seizure Time Seen by Provider: 07/10/21 13:29 - HPI HPI: 31-year-old -[place] female presents to the emergency department via EMS from [place] after the patient had some witnessed seizure-like activity. EMS was called by the patient's boyfriend. The patient is awake and alert at the time of my examination but was postictal throughout most of her EMS course. She did not receive any medication prior to presentation. She does have a seizure history and history of medication noncompliance. The patient was last here in February of this year for similar symptoms and was discharged home on Keppra and Vimpat. She complains of generalized body pain. ED Past Medical Hx - Past Medical History Hx CVA: Yes Hx Congestive Heart Failure: No Hx Diabetes: No Hx Seizures: Yes Hx Asthma: No Hx COPD: No Additional medical history: meningitis - Surgical History Additional Surgical History: LEFT ARM / LEFT FINGERS AMPUTATED - Social History Smoking Status: Current Every Day Smoker - Medications Home Medications: Home Medications Medication Instructions Recorded Confirmed Last Taken Type predniSONE [Deltasone] 20 mg PO QDAY #3 tab 05/13/17 Unknown Rx diphenhydrAMINE [Benadryl CAP] 25 mg PO Q8HR PRN 02/26/19 Unknown History Lacosamide [Vimpat] 150 mg PO BID 30 Days #60 tablet 03/06/21 Unknown Rx levETIRAcetam [Keppra TAB] 500 mg PO BID 30 Days #60 tablet 03/06/21 Unknown Rx Ibuprofen [Motrin 800 MG tab] 800 mg PO Q8HR PRN #20 tablet 07/10/21 Unknown Rx ED Review of Systems ROS: Stated complaint: Seizure Other details as noted in HPI Comment: All other systems reviewed and negative Constitutional: denies: chills, fever Eyes: denies: eye pain, vision change ENT: denies: ear pain, throat pain Respiratory: denies: cough, shortness of breath Cardiovascular: denies: chest pain, palpitations Gastrointestinal: denies: abdominal pain, vomiting Genitourinary: denies: dysuria, discharge Musculoskeletal: myalgia. denies: joint swelling Skin: denies: rash, lesions Neurological: other (Seizures). denies: numbness, paresthesias Physical Exam - Physical Exam Physical Exam: GENERAL: The patient is well-developed well-nourished. HENT: Normocephalic. Atraumatic. Patient has moist mucous membranes. EYES: Extraocular motions are intact. No nystagmus. NECK: Supple. Trachea is midline. CHEST/LUNGS: Clear to auscultation. There is no respiratory distress noted. HEART/CARDIOVASCULAR: Regular. There is no tachycardia. There is no murmur. ABDOMEN: Abdomen is soft, nontender. Patient has normal bowel sounds. SKIN: Skin is warm and dry. NEURO: The patient is awake and communicative but not saying much. When she speaks there is no slurred speech. MUSCULOSKELETAL: There is no tenderness or deformity. There is no limitation range of motion. ED Medical Decision Making - Lab Data Result diagrams: 07/10/21 13:51 07/10/21 13:51 Lab Results 07/10/21 07/10/21 07/10/21 Range/Units 13:51 13:51 13:51 WBC 5.6 (4.5-11.0) K/mm3 RBC 4.28 (3.65-5.03) M/mm3 Hgb 13.8 (10.1-14.3) gm/dl Hct 42.1 (30.3-42.9) % MCV 99 H (79-97) fl MCH 32 (28-32) pg MCHC 33 (30-34) % RDW 13.2 (13.2-15.2) % Plt Count 264 (140-440) K/mm3 Lymph % (Auto) 27.2 (13.4-35.0) % Frederick % (Auto) 4.0 (0.0-7.3) % Eos % (Auto) 2.9 (0.0-4.3) % Baso % (Auto) 1.0 (0.0-1.8) % Lymph # (Auto) 1.5 (1.2-5.4) K/mm3 Frederick # (Auto) 0.2 (0.0-0.8) K/mm3 Eos # (Auto) 0.2 (0.0-0.4) K/mm3 Baso # (Auto) 0.1 (0.0-0.1) K/mm3 Seg Neutrophils % 64.9 (40.0-70.0) % Seg Neutrophils # 3.6 (1.8-7.7) K/mm3 Sodium 139 (137-145) mmol/L Potassium 4.0 (3.6-5.0) mmol/L Chloride 103.0 (98-107) mmol/L Carbon Dioxide 18 L (22-30) mmol/L Anion Gap 22 mmol/L BUN 11 (7-17) mg/dL Creatinine 0.9 (0.6-1.2) mg/dL Estimated GFR > 60 ml/min BUN/Creatinine Ratio 12 % Glucose 68 (65-100) mg/dL Calcium 9.4 (8.4-10.2) mg/dL Total Bilirubin < 0.20 (0.1-1.2) mg/dL AST 12 (5-40) units/L ALT 8 (7-56) units/L Alkaline Phosphatase 59 (35-129) units/L Ammonia (25-60) umol/L Total Protein 7.8 (6.3-8.2) g/dL Albumin 4.6 (3.9-5) g/dL Albumin/Globulin Ratio 1.4 % Plasma/Serum Alcohol < 0.01 (0-0.07) % 07/10/21 Range/Units 13:51 WBC (4.5-11.0) K/mm3 RBC (3.65-5.03) M/mm3 Hgb (10.1-14.3) gm/dl Hct (30.3-42.9) % MCV (79-97) fl MCH (28-32) pg MCHC (30-34) % RDW (13.2-15.2) % Plt Count (140-440) K/mm3 Lymph % (Auto) (13.4-35.0) % Frederick % (Auto) (0.0-7.3) % Eos % (Auto) (0.0-4.3) % Baso % (Auto) (0.0-1.8) % Lymph # (Auto) (1.2-5.4) K/mm3 Frederick # (Auto) (0.0-0.8) K/mm3 Eos # (Auto) (0.0-0.4) K/mm3 Baso # (Auto) (0.0-0.1) K/mm3 Seg Neutrophils % (40.0-70.0) % Seg Neutrophils # (1.8-7.7) K/mm3 Sodium (137-145) mmol/L Potassium (3.6-5.0) mmol/L Chloride (98-107) mmol/L Carbon Dioxide (22-30) mmol/L Anion Gap mmol/L BUN (7-17) mg/dL Creatinine (0.6-1.2) mg/dL Estimated GFR ml/min BUN/Creatinine Ratio % Glucose (65-100) mg/dL Calcium (8.4-10.2) mg/dL Total Bilirubin (0.1-1.2) mg/dL AST (5-40) units/L ALT (7-56) units/L Alkaline Phosphatase (35-129) units/L Ammonia 35.0 (25-60) umol/L Total Protein (6.3-8.2) g/dL Albumin (3.9-5) g/dL Albumin/Globulin Ratio % Plasma/Serum Alcohol (0-0.07) % - Medical Decision Making This patient presents to the emergency department after she had some witnessed seizure-like activity prior to arrival, and she does have a seizure history. Upon arrival to the emergency department the patient is awake and complaining of generalized body aches. Initially she is cooperative and somewhat conversive but does not say much other than that she follows at [facility] for primary care and neurology. The patient is unable to tell me what antielliptic medication she takes. Previous records show that she was previously on Keppra and Vimpat, so the patient was given a loading dose of Keppra and 100 mg of Vimpat, as well as some gentle IV fluid resuscitation. Labs have been unremarkable including CBC, metabolic panel, CK level, ammonia, and blood alcohol level. Patient was reevaluated multiple times and has greatly improved. She is awake, oriented, conversive, calm and appropriate. On reevaluation she does not have any focal, motor or sensory deficits and her cranial nerves are intact. The patient is asking for discharge home. She says that she has medication to take at home and agrees that it is Keppra and Vimpat. She says that she has good outpatient follow-up with [facility] for primary care and neurology. The patient's boyfriend is at bedside to assist in getting her home safely. Critical Care Time: No Critical care attestation.: If time is entered above; I have spent that time in minutes in the direct care of this critically ill patient, excluding procedure time. ED Disposition Clinical Impression: Seizure Disposition: 01 HOME / SELF CARE / HOMELESS Is pt being admited?: No Condition: Stable Instructions: Seizure, Adult Additional Instructions: Please follow-up with your primary care physician and neurologist in the next few days. Take all of your medications as previously prescribed. Because of your seizures you cannot drive or operate any heavy machinery for at least 6 months or until cleared by your neurologist. Please try to avoid any alcohol, excessive caffeine use, illicit drug use, as these things can decrease your seizure threshold. Return to the emergency department with any worsening of your symptoms, new or concerning symptoms not addressed during this current emergency department visit, or with any acute distress. Prescriptions: Ibuprofen [Motrin 800 MG tab] 800 mg PO Q8HR PRN #20 tablet PRN Reason: Pain , Severe (7-10) Referrals: PRIMARY CARE, [Primary Care Provider] - 2-3 Days Time of Disposition: 15:23
[2021-07-10] MEDS ORDERED: LACOSAMIDE 100 MG in SODIUM CHLORIDE 0.9% 100 ML IV ONE (14:00)
[2021-07-10 14:20] LABS: Basophils # (Auto) 0.1 K/mm3 (0.0-0.1); Eosinophils # (Auto) 0.2 K/mm3 (0.0-0.4); Eosinophils % (Auto) 2.9 % (0.0-4.3); Hematocrit 42.1 % (30.3-42.9); Hemoglobin 13.8 gm/dl (10.1-14.3); Lymphocytes # (Auto) 1.5 K/mm3 (1.2-5.4); Lymphocytes % (Auto) 27.2 % (13.4-35.0); Mean Corpuscular HGB Conc 33 % (30-34); Mean Corpuscular Volume 99 fl (79-97); Monocytes # (Auto) 0.2 K/mm3 (0.0-0.8); Platelet Count 264 K/mm3 (140-440); Red Blood Count 4.28 M/mm3 (3.65-5.03); Red Cell Distribution Width 13.2 % (13.2-15.2)
[2021-07-10 14:31] LABS: Alanine Aminotransferase 8 units/L (7-56); Albumin 4.6 g/dL (3.9-5); BUN/Creatinine Ratio 12; Blood Urea Nitrogen 11 mg/dL (7-17); Calcium 9.4 mg/dL (8.4-10.2); Hemolysis Index 12
[2021-07-10 18:48] VITALS: BP 113/82
== END 2021-07-10 15:42 | disposition home or self-care (01) ==
LOC: ED 13:21
DX: R56.9 Unspecified convulsions (principal); F17.200 Nicotine dependence, unspecified, uncomplicated
CPT/HCPCS: 36415; 80053; 82140; 85025; 96365; 96367; 99283; C9254; J1953; J7030; 80320; Q0162; G0480

== ENCOUNTER 2021-07-15 22:01 | Observation (INO) | payer MEDICAID ==
[2021-07-15] MEDS ORDERED: levETIRAcetam 1000 MG/NS 0.75% 1,000 MG/100 ML BAG IV ONE (23:33)
[2021-07-15] MEDS ORDERED: LORazepam 1 MG TAB PO ONE (23:33)
--- NOTE | 2021-07-16 00:09 | Cat Scan Report ---
CT HEAD WITHOUT CONTRAST INDICATION / CLINICAL INFORMATION: Increased seizures. TECHNIQUE: All CT scans at this location are performed using CT dose reduction for ALARA by means of automated exposure control. COMPARISON: CT from 03/05/2021. FINDINGS: BRAIN PARENCHYMA: No acute intracranial hemorrhage. No evidence of recent infarct. No mass effect or midline shift. VENTRICULAR SYSTEM/EXTRA-AXIAL SPACES: Ventricles are normal for age. No extra-axial fluid collection . ORBITS: Normal as visualized. SKELETAL SYSTEM/SOFT TISSUES: Normal bones and soft tissues. PARANASAL SINUSES/MASTOID AIR CELLS: No significant abnormality. ADDITIONAL FINDINGS: None. IMPRESSION: 1. No acute intracranial abnormality. Signer Name: Rufus Pablo MD Signed: 07/16/2021 12:04 AM Workstation Name: [id number]
--- NOTE | 2021-07-16 00:49 | Emergency Department Report ---
ED Seizure HPI - General Chief Complaint: Seizure Stated Complaint: NON COMPLIANT TO MEDICATIONS, SEIZURE Time Seen by Provider: 07/15/21 23:15 Source: EMS Mode of arrival: Stretcher Limitations: No Limitations - History of Present Illness Initial Comments: Patient is a 31-year-old female with history of seizures who is currently controlled on Vimpat and Keppra who presents to emergency department after seizure activity. Per patient's boyfriend patient had up to 24 seizures on today. Patient is unable to give any additional history and appears postictal at this time. MD Complaint: seizure - Related Data Home Medications Medication Instructions Recorded Confirmed Last Taken diphenhydrAMINE [Benadryl CAP] 25 mg PO Q8HR PRN 02/26/19 Unknown Previous Rx's Medication Instructions Recorded Last Taken Type predniSONE [Deltasone] 20 mg PO QDAY #3 tab 05/13/17 Unknown Rx Lacosamide [Vimpat] 150 mg PO BID 30 Days #60 tablet 03/06/21 Unknown Rx levETIRAcetam [Keppra TAB] 500 mg PO BID 30 Days #60 tablet 03/06/21 Unknown Rx Ibuprofen [Motrin 800 MG tab] 800 mg PO Q8HR PRN #20 tablet 07/10/21 Unknown Rx Allergies Allergy/AdvReac Type Severity Reaction Status Date / Time No Known Allergies Allergy Verified 02/10/18 20:59 ED Review of Systems ROS: Stated complaint: NON COMPLIANT TO MEDICATIONS, SEIZURE Other details as noted in HPI Comment: Unobtainable due to pts medical conditions ED Past Medical Hx - Past Medical History Hx CVA: Yes Hx Congestive Heart Failure: No Hx Diabetes: No Hx Seizures: Yes Hx Asthma: No Hx COPD: No Additional medical history: meningitis - Surgical History Additional Surgical History: LEFT ARM / LEFT FINGERS AMPUTATED - Social History Smoking Status: Current Every Day Smoker - Medications Home Medications: Home Medications Medication Instructions Recorded Confirmed Last Taken Type predniSONE [Deltasone] 20 mg PO QDAY #3 tab 05/13/17 Unknown Rx diphenhydrAMINE [Benadryl CAP] 25 mg PO Q8HR PRN 02/26/19 Unknown History Lacosamide [Vimpat] 150 mg PO BID 30 Days #60 tablet 03/06/21 Unknown Rx levETIRAcetam [Keppra TAB] 500 mg PO BID 30 Days #60 tablet 03/06/21 Unknown Rx Ibuprofen [Motrin 800 MG tab] 800 mg PO Q8HR PRN #20 tablet 07/10/21 Unknown Rx ED Physical Exam - General Limitations: No Limitations General appearance: alert - Head Head exam: Present: atraumatic, normocephalic - Eye Eye exam: Present: normal appearance - ENT ENT exam: Present: mucous membranes moist - Neck Neck exam: Present: normal inspection - Respiratory Respiratory exam: Present: normal lung sounds bilaterally. Absent: respiratory distress - Cardiovascular Cardiovascular Exam: Present: regular rate, normal rhythm. Absent: systolic murmur, diastolic murmur, rubs, gallop - GI/Abdominal GI/Abdominal exam: Present: soft, normal bowel sounds - Rectal Rectal exam: Present: deferred - Extremities Exam Extremities exam: Present: normal inspection - Back Exam Back exam: Present: normal inspection - Neurological Exam Neurological exam: Present: alert, other (Patient appears postictal) - Psychiatric Psychiatric exam: Present: other (Unable to assess) - Skin Skin exam: Present: warm, dry ED Course - Reevaluation(s) Reevaluation #1: 07/16/21 04:47 Patient was found on the floor covered in urine. Concerned she could have had another seizure. Given this and given that patient has not returned to baseline plan for admission. ED Medical Decision Making - Lab Data Result diagrams: 07/16/21 00:35 07/16/21 00:35 - Medical Decision Making Patient is a 31-year-old female who presents to the emergency department with complaints of multiple seizures. Unclear patient is compliant on Vimpat and Keppra but these are the medications that she is scheduled prescribed to take. Evaluation with CT head, basic labs, Keppra level. Will give IV Keppra p.o. Ativan and reassess. Critical care attestation.: If time is entered above; I have spent that time in minutes in the direct care of this critically ill patient, excluding procedure time. ED Disposition Clinical Impression: Seizure Disposition: ADMITTED INPATIENT Is pt being admited?: Yes Does the pt Need Aspirin: No Condition: Stable Referrals: PRIMARY CARE, [Primary Care Provider] - 3-5 Days
[2021-07-16 01:18] LABS: Basophils % (Auto) 0.3 % (0.0-1.8); Eosinophils % (Auto) 0.1 % (0.0-4.3); Hematocrit 38.7 % (30.3-42.9); Hemoglobin 12.9 gm/dl (10.1-14.3); Lymphocytes # (Auto) 2.1 K/mm3 (1.2-5.4); Lymphocytes % (Auto) 12.9 % (13.4-35.0); Mean Corpuscular HGB Conc 33 % (30-34); Mean Corpuscular Volume 97 fl (79-97); Monocytes # (Auto) 0.3 K/mm3 (0.0-0.8); Monocytes % (Auto) 1.9 % (0.0-7.3); Platelet Count 254 K/mm3 (140-440); Red Blood Count 3.98 M/mm3 (3.65-5.03)
[2021-07-16 01:39] LABS: Alanine Aminotransferase 9 units/L (7-56); Albumin 4.4 g/dL (3.9-5); BUN/Creatinine Ratio 14; Blood Urea Nitrogen 11 mg/dL (7-17); Calcium 9.6 mg/dL (8.4-10.2); Hemolysis Index 5
[2021-07-16] MEDS ORDERED: ACETAMINOPHEN 500 MG TAB PO ONE (02:18)
[2021-07-16] MEDS ORDERED: LACOSAMIDE 200 MG in SODIUM CHLORIDE 0.9% 100 ML IV ONE (04:16)
[2021-07-16] MEDS ORDERED: MAGNESIUM HYDROXIDE (MOM) ORAL LIQD UDC PO PRN (05:15)
[2021-07-16] MEDS ORDERED: ONDANSETRON 4 MG/2 ML INJ IV PRN (05:15)
[2021-07-16] MEDS ORDERED: MORPHINE 4 MG/1 ML INJ IV PRN (05:15)
[2021-07-16] MEDS ORDERED: ACETAMINOPHEN 325 MG TAB PO PRN (05:15)
[2021-07-16] MEDS ORDERED: MORPHINE 2 MG/1 ML INJ IV PRN (05:15)
--- NOTE | 2021-07-16 05:37 | History and Physical Report ---
History of Present Illness Date of examination: 07/16/21 Date of admission: 07/16/2021 Chief complaint: Seizure disorder History of present illness: 31-year-old -Japanese female with known history of seizure disorder currently controlled on Vimpat and Keppra presents to the emergency room today after having multiple seizure activities at home today. According to boyfriend patient was said to have had up to about 24 seizure episodes today. Patient unable to give any history at the moment as she appears to be post ictal. Patient appears to be noncompliant with her medications. Work-up in the emergency room today reveals a leukocytosis of 16.4 and a mild hyponatremia of 133. CT scan of the head was unremarkable. Patient has been started on IV Keppra while in the emergency room. Past History Past Medical History: seizures, stroke, other (H/O meningitis) Past Surgical History: Other (: LEFT ARM / LEFT FINGERS AMPUTATED) Social history: smoking (Current daily smoker) Family history: no significant family history Medications and Allergies Allergies Allergy/AdvReac Type Severity Reaction Status Date / Time No Known Allergies Allergy Verified 02/10/18 20:59 Home Medications Medication Instructions Recorded Confirmed Last Taken Type predniSONE [Deltasone] 20 mg PO QDAY #3 tab 05/13/17 Unknown Rx diphenhydrAMINE [Benadryl CAP] 25 mg PO Q8HR PRN 02/26/19 Unknown History Lacosamide [Vimpat] 150 mg PO BID 30 Days #60 tablet 03/06/21 Unknown Rx levETIRAcetam [Keppra TAB] 500 mg PO BID 30 Days #60 tablet 03/06/21 Unknown Rx Ibuprofen [Motrin 800 MG tab] 800 mg PO Q8HR PRN #20 tablet 07/10/21 Unknown Rx Active Meds: Active Medications Acetaminophen (Acetaminophen 325 Mg Tab) 650 mg PO Q4H PRN PRN Reason: Pain MILD(1-3)/Fever >100.5/CHAVEZ Sodium Chloride (Nacl 0.9% 1000 Ml) 1,000 mls @ 125 mls/hr IV DIRECT BELTRAN Magnesium Hydroxide (Magnesium Hydroxide (Mom) Oral Liqd Udc) 30 ml PO Q4H PRN PRN Reason: Constipation Morphine Sulfate (Morphine 2 Mg/1 Ml Inj) 2 mg IV Q4H PRN PRN Reason: Pain, Moderate (4-6) Morphine Sulfate (Morphine 4 Mg/1 Ml Inj) 4 mg IV Q4H PRN PRN Reason: Pain , Severe (7-10) Ondansetron HCl (Ondansetron 4 Mg/2 Ml Inj) 4 mg IV Q8H PRN PRN Reason: Nausea And Vomiting Sodium Chloride (Sodium Chloride 0.9% 10 Ml Flush Syringe) 10 ml IV BID BELTRAN Sodium Chloride (Sodium Chloride 0.9% 10 Ml Flush Syringe) 10 ml IV PRN PRN PRN Reason: LINE FLUSH Review of Systems ROS unobtainable: due to mental status Exam - Constitutional General appearance: Present: no acute distress, well-nourished - EENT Eyes: Present: PERRL, EOM intact. Absent: scleral icterus ENT: hearing intact, clear oral mucosa, dentition normal - Neck Neck: Present: supple, normal ROM - Respiratory Respiratory effort: normal Respiratory: bilateral: CTA - Cardiovascular Rhythm: regular Heart Sounds: Present: S1 & S2. 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 Absent: mass - Integumentary Integumentary: Present: clear, warm, dry. Absent: rash - Musculoskeletal Musculoskeletal: strength equal bilaterally - Psychiatric Psychiatric: cooperative - Neurologic Neurologic: CNII-XII intact, no focal deficits, moves all extremities, other (Non verbal. Responds by nodding her head.) Results - Labs CBC & Chem 7: 07/16/21 00:35 07/16/21 00:35 Labs: Abnormal lab results 07/16/21 07/16/21 Range/Units 00:35 00:35 WBC 16.4 H (4.5-11.0) K/mm3 RDW 13.0 L (13.2-15.2) % Lymph % (Auto) 12.9 L (13.4-35.0) % Seg Neutrophils % 84.8 H (40.0-70.0) % Seg Neutrophils # 13.9 H (1.8-7.7) K/mm3 Sodium 133 L (137-145) mmol/L Chloride 95.9 L (98-107) mmol/L Carbon Dioxide 21 L (22-30) mmol/L Assessment and Plan - Patient Problems (1) Status epilepticus Current Visit: No Status: Acute Plan to address problem: Patient admitted and started on IV Keppra. We will place on seizure precautions. Consult placed to neurology for evaluation and recommendations. (2) Leukocytosis Current Visit: Yes Status: Acute Plan to address problem: Possibly reactive. Urinalysis is still being awaited. We will monitor CBC. (3) DVT prophylaxis Current Visit: No Status: Acute Plan to address problem: Patient placed on subcutaneous heparin. (4) Full code status Current Visit: Yes Status: Acute Plan to address problem: Patient is full code.
[2021-07-16] MEDS: SODIUM CHLORIDE 0.9% 1000 ML 1,000 ML IV SCH (06:00)
[2021-07-16] MEDS ORDERED: LORazepam 2 MG/ML VIAL IV PRN (06:03)
--- NOTE | 2021-07-16 09:27 | Event Note ---
Date: 07/16/21 Patient with seizures. I have seen and examined her. Continue Jeff.
[2021-07-16] MEDS: levETIRAcetam 500 MG in DEXTROSE 5% IN WATER 100 ML IV SCH ×2 (09:31→21:45)
[2021-07-16] MEDS: HEPARIN 5,000 UNIT/1 ML VIAL SUB-Q SCH ×2 (16:20→21:46)
[2021-07-17] MEDS: SODIUM CHLORIDE 0.9% 1000 ML 1,000 ML IV SCH ×2 (01:10→09:01)
[2021-07-17] MEDS: HEPARIN 5,000 UNIT/1 ML VIAL SUB-Q SCH (05:24)
[2021-07-17 06:16] VITALS: BP 99/59
[2021-07-17 06:20] LABS: Basophils # (Auto) 0.1 K/mm3 (0.0-0.1); Eosinophils # (Auto) 0.3 K/mm3 (0.0-0.4); Eosinophils % (Auto) 3.8 % (0.0-4.3); Hematocrit 38.4 % (30.3-42.9); Hemoglobin 12.5 gm/dl (10.1-14.3); Lymphocytes # (Auto) 3.2 K/mm3 (1.2-5.4); Lymphocytes % (Auto) 39.6 % (13.4-35.0); Mean Corpuscular HGB Conc 33 % (30-34); Mean Corpuscular Volume 100 fl (79-97); Monocytes # (Auto) 0.4 K/mm3 (0.0-0.8); Monocytes % (Auto) 4.3 % (0.0-7.3); Platelet Count 216 K/mm3 (140-440); Red Blood Count 3.85 M/mm3 (3.65-5.03); Red Cell Distribution Width 12.9 % (13.2-15.2)
[2021-07-17 06:36] LABS: BUN/Creatinine Ratio 13; Blood Urea Nitrogen 10 mg/dL (7-17); Calcium 8.6 mg/dL (8.4-10.2); Hemolysis Index 18
[2021-07-17] MEDS: levETIRAcetam 500 MG in DEXTROSE 5% IN WATER 100 ML IV SCH (09:01)
[2021-07-17] MEDS ORDERED: LACOSAMIDE 100 MG TAB PO SCH (10:00)
[2021-07-17] MEDS ORDERED: LACOSAMIDE 50 MG TAB PO SCH (10:00)
--- NOTE | 2021-07-17 10:32 | Consultation ---
History of Present Illness Consult date: 07/17/21 Reason for Consult: Seizures Chief complaint: Seizures History of present illness: 31 yo female with seizure d/o, meningitis, left finger amputee, who presents with 24 seizures per boyfriend (at bedside) with seizure occurring every 30 to 60 mins with shaking lasting for 1-2 mins and then postictal lasting for 30 to 60 mins. Patient notes she thinks her seizures are triggered by stress. However, she also notes fever, chills, nightsweats for the last few days to weeks with unintentional weight loss. She also notes menses-related headache/nausea/emesis. She notes compliance with her medications. Denies hx of a stroke. Past History Past Medical History: seizures, other (H/O meningitis) Past Surgical History: Other (: LEFT ARM / LEFT FINGERS AMPUTATED) Social history: smoking (Current daily smoker) Family history: no significant family history Medications and Allergies Allergies Allergy/AdvReac Type Severity Reaction Status Date / Time No Known Allergies Allergy Verified 02/10/18 20:59 Home Medications Medication Instructions Recorded Confirmed Last Taken Type predniSONE [Deltasone] 20 mg PO QDAY #3 tab 05/13/17 Unknown Rx diphenhydrAMINE [Benadryl CAP] 25 mg PO Q8HR PRN 02/26/19 Unknown History Lacosamide [Vimpat] 150 mg PO BID 30 Days #60 tablet 03/06/21 Unknown Rx levETIRAcetam [Keppra TAB] 500 mg PO BID 30 Days #60 tablet 03/06/21 Unknown Rx Ibuprofen [Motrin 800 MG tab] 800 mg PO Q8HR PRN #20 tablet 07/10/21 Unknown Rx Active Meds: Active Medications Acetaminophen (Acetaminophen 325 Mg Tab) 650 mg PO Q4H PRN PRN Reason: Pain MILD(1-3)/Fever >100.5/CHAVEZ Last Admin: 07/17/21 09:09 Dose: 650 mg Documented by: Heparin Sodium (Porcine) (Heparin 5,000 Unit/1 Ml Vial) 5,000 unit SUB-Q Q8HR BELTRAN Last Admin: 07/17/21 05:24 Dose: 5,000 unit Documented by: Sodium Chloride (Nacl 0.9% 1000 Ml) 1,000 mls @ 125 mls/hr IV DIRECT BELTRAN Last Admin: 07/17/21 09:01 Dose: 125 mls/hr Documented by: Levetiracetam 500 mg/ Dextrose 105 mls @ 400 mls/hr IV Q12HR [facility] Last Admin: 07/17/21 09:01 Dose: 400 mls/hr Documented by: Lacosamide (Lacosamide 50 Mg Tab) 150 mg PO Q12HR [facility] Last Admin: 07/17/21 09:01 Dose: 150 mg Documented by: Lorazepam (Lorazepam 2 Mg/Ml Vial) 1 mg IV Q4H PRN PRN Reason: Seizures Magnesium Hydroxide (Magnesium Hydroxide (Mom) Oral Liqd Udc) 30 ml PO Q4H PRN PRN Reason: Constipation Morphine Sulfate (Morphine 2 Mg/1 Ml Inj) 2 mg IV Q4H PRN PRN Reason: Pain, Moderate (4-6) Morphine Sulfate (Morphine 4 Mg/1 Ml Inj) 4 mg IV Q4H PRN PRN Reason: Pain , Severe (7-10) Ondansetron HCl (Ondansetron 4 Mg/2 Ml Inj) 4 mg IV Q8H PRN PRN Reason: Nausea And Vomiting Sodium Chloride (Sodium Chloride 0.9% 10 Ml Flush Syringe) 10 ml IV BID [facility] Last Admin: 07/16/21 21:46 Dose: 10 ml Documented by: Sodium Chloride (Sodium Chloride 0.9% 10 Ml Flush Syringe) 10 ml IV PRN PRN PRN Reason: LINE FLUSH Review of Systems All systems: negative (as per HPI;) Physical Examination - Vital Signs Vital Signs: Vital Signs Resp Pulse Ox 12 100 07/16/21 06:07 07/16/21 06:07 - Physical Exam Narrative exam: Gen: nad, well-nourished; Head: normocephalic; Eyes: no gaze deviation; no ptosis; ENT: normal vocalization; CVS: warm and well-perfused; Pulm: no respiratory distress; GI: appears non-distended; Ext: no cyanosis appreciated at distal extremities; +amputation of distal left hand/fingers; Skin: no acute rash or hives appreciated at distal extremities; Heme: no pathologic bruising or ecchymosis appreciated at distal extremities; Neuro: alert, oriented to name, age, month, year, surroundings, no dysarthria, no aphasia, CN 2 - PERRL, visual jones grossly intact, CN 3, 4, 6 - EOMI, CN 5 - facial sensation symmetric to light touch, CN 7 - facial movement symmetric, CN 8 - hearing grossly intact, CN 9, 10 - uvula midline, CN 11 - shrug symmetric, CN 12 - tongue midline; Motor - at least 4/5 in all exts; Sensory - light touch symmetric, Cerebellar - fnf intact on right; bilateral hts intact, Gait - deferred secondary to seizure risk; Results - Laboratory Findings CBC and BMP: 07/17/21 05:19 07/17/21 05:19 Abnormal Lab Findings: Abnormal Labs 07/16/21 07/16/21 07/17/21 00:35 00:35 05:19 WBC 16.4 H MCV 100 H MCH 33 H RDW 13.0 L 12.9 L Lymph % (Auto) 12.9 L 39.6 H Seg Neutrophils % 84.8 H Seg Neutrophils # 13.9 H Sodium 133 L Chloride 95.9 L Carbon Dioxide 21 L 07/17/21 05:19 WBC MCV MCH RDW Lymph % (Auto) Seg Neutrophils % Seg Neutrophils # Sodium Chloride 107.7 H Carbon Dioxide 20 L Assessment and Plan 31 yo female with seizure d/o, meningitis who presents with status epilepticus. 1. Status epilepticus - Keppra 750 mg iv/po bid; vimpat 150 mg iv/po bid; eeg; mri brain w/ wo contrast; seziure precautions and restrictions; correction of underling metabolic/toxic/infectious/inflammatory etiologies per primary team; see #2. 2. Fever, Chills, Nightsweats - per primary team (?covid-19 testing). 3. Unintentional Weight Loss - per primary team. 4. Borderline Hyponatremia - corrected as of this morning. 5. Stress-induced seizure / CATY - diagnosis of exclusion. Denys Kelsey MD Neurology
--- NOTE | 2021-07-17 11:50 | Event Note ---
Date: 07/17/21 Nurse called me to inform me that Patient left against medical advice.
--- NOTE | 2021-07-17 11:51 | Discharge Summary ---
Providers - Providers Date of Admission: 07/16/21 05:15 Attending physician: WILSON ARROYO 07/16/21 05:15 Consult to Physician [CONS] Routine Comment: Consulting Provider: EMILY FLOR Physician Instructions: Reason For Exam: Seizure Disorder Primary care physician: [employer] Hospitalization Condition: Stable Exam - Constitutional Vitals: Temp Pulse Resp BP Pulse Ox 98.4 F 65 18 99/59 98 07/17/21 05:40 07/17/21 05:40 07/17/21 05:40 07/17/21 05:40 07/17/21 09:00 Plan Follow up with: PRIMARY CAREMD [Primary Care Provider] - 3-5 Days
[2021-07-17] MEDS ORDERED: levETIRAcetam 500 MG/5 ML ORAL LIQD PO SCH (22:00)
== END 2021-07-17 11:05 | disposition left against medical advice (07) ==
LOC: ED 22:01 → 3A 07-16 05:15
PROVIDERS: ADMIT Internal Medicine Geriatric Medicine; ATTEND Internal Medicine
DX: G40.901 Epilepsy, unspecified, not intractable, with status epilepticus (principal); D72.829 Elevated white blood cell count, unspecified; F17.210 Nicotine dependence, cigarettes, uncomplicated; E87.1 Hypo-osmolality and hyponatremia; R50.9 Fever, unspecified; R63.4 Abnormal weight loss; Z79.899 Other long term (current) drug therapy; Z98.890 Other specified postprocedural states; Z68.22 Body mass index [BMI] 22.0-22.9, adult
CPT/HCPCS: 36415; 70450; 80048; 80053; 80177; 84703; 85025; 96365; 96366; 96367; 96372; 99284; C9254; G0378; J1644; J1953; J7030; J7060; Q0162

== ENCOUNTER 2021-10-16 12:30 | Emergency (ER) | payer MEDICAID ==
[2021-10-16] MEDS ORDERED: SODIUM CHLORIDE 0.9% 1000 ML 1,000 ML IV ONE (12:31)
[2021-10-16] MEDS ORDERED: PHENYTOIN 1,000 MG in SODIUM CHLORIDE 0.9% 250ML 250 ML IV ONE (12:31)
[2021-10-16] MEDS ORDERED: levETIRAcetam 1000 MG/NS 0.75% 1,000 MG/100 ML BAG IV ONE (12:33)
[2021-10-16 13:19] LABS: Hematocrit 37.8 % (30.3-42.9); Mean Corpuscular HGB Conc 34 % (30-34); Mean Corpuscular Volume 98 fl (79-97); Platelet Count 303 K/mm3 (140-440); Red Blood Count 3.86 M/mm3 (3.65-5.03); Red Cell Distribution Width 14.4 % (13.2-15.2)
[2021-10-16 13:30] LABS: Bilirubin,Urine NEG (Negative); Blood,Urine MOD (Negative); Color,Urine Straw (Yellow); Protein,Urine <15 mg/dL mg/dL (Negative); Urobilinogen,Urine < 2.0 mg/dL (<2.0); WBC,Urine < 1.0 /HPF (0.0-6.0)
[2021-10-16 13:56] LABS: HCG Qualitative,Urine Negative (Negative)
[2021-10-16 14:15] LABS: Band Neutrophils # (Manual) 0.4 K/mm3; Basophils % (Manual) 0 % (0.0-1.8); Eosinophils % (Manual) 0 % (0.0-4.3); Platelet Estimate Consistent w Auto; RBC Morphology Normal; Total Cells Counted 100
[2021-10-16 14:20] LABS: Amphetamine Screen,Urine PRESUMPTIVE NEGATIVE; Benzodiazepines Screen,Urine PRESUMPTIVE NEGATIVE; Cannabinoid Screen,Urine PRESUMPTIVE POSITIVE; Cocaine Screen,Urine PRESUMPTIVE NEGATIVE; Methadone Screen,Urine PRESUMPTIVE NEGATIVE; Opiate Screen,Urine PRESUMPTIVE NEGATIVE
--- NOTE | 2021-10-16 14:23 | Cat Scan Report ---
CT BRAIN: 10/16/2021 INDICATION / CLINICAL INFORMATION: Seizure. COMPARISON: 07/15/2021 FINDINGS: BRAIN/INTRACRANIAL STRUCTURES: Unenhanced CT images of the brain were obtained and compared to the mo st recent prior exam from 07/15/2021. There is been no change. There is no evidence of acute abnormality. Ventricles and sulci are normal in size and shape. There is no evidence of ischemic injury, demyelination, hemorrhage, or mass. There are no abnormal ex tra-axial fluid collections. EXTRACRANIAL STRUCTURES: Unremarkable. IMPRESSION: No acute abnormality. No significant change when compared to 07/15/2021. All CT scans at this location are performed using dose reduction to ALARA by means of automated expos ure control. Signer Name: Luis Samuel MD Signed: 10/16/2021 2:19 PM Workstation Name: [id number]
[2021-10-16 14:31] LABS: Alanine Aminotransferase 13 units/L (7-56); Albumin 4.7 g/dL (3.9-5); BUN/Creatinine Ratio 10; Blood Urea Nitrogen 11 mg/dL (7-17); C-Reactive Protein 0.1 mg/dL (0.00-1.30); Calcium 9.7 mg/dL (8.4-10.2); Hemolysis Index 5
--- NOTE | 2021-10-16 14:53 | XRay Report ---
CHEST 1 VIEW 10/16/2021 2:24 PM INDICATION / CLINICAL INFORMATION: Dyspnea. COMPARISON: None available. FINDINGS: SUPPORT DEVICES: None. HEART / MEDIASTINUM: No significant abnormality. LUNGS / PLEURA: There are nonspecific left basilar opacities. The lungs are otherwise clear. No signi ficant pleural effusion. No pneumothorax. ADDITIONAL FINDINGS: No significant additional findings. IMPRESSION: Nonspecific left basilar opacities may represent pneumonia or atelectasis. No other acute findings. Signer Name: Erick Szymanski MD Signed: 10/16/2021 2:48 PM Workstation Name: [id number]
--- NOTE | 2021-10-16 16:17 | Emergency Department Report ---
ED Seizure HPI - General Chief Complaint: Seizure Stated Complaint: SEIZURES Time Seen by Provider: 10/16/21 12:31 Source: EMS Mode of arrival: Stretcher Limitations: No Limitations - History of Present Illness Initial Comments: Pt brought in by EMS with reports of multiple seizures this morning, family member stated that the pt is out of medication but cannot recall the name of the medication. Complaint: seizure -: Sudden, hour(s) Description of Episode: loss of consciousness, bladder incontinence -: second(s) Witnessed:: Yes Trauma: No Seizure History: known seizure disorder Place: home Possible Precipitating Event: none Associated Symptoms: denies other symptoms - Related Data Home Medications Medication Instructions Recorded Confirmed Last Taken diphenhydrAMINE [Benadryl CAP] 25 mg PO Q8HR PRN 02/26/19 Unknown Previous Rx's Medication Instructions Recorded Last Taken Type predniSONE [Deltasone] 20 mg PO QDAY #3 tab 05/13/17 Unknown Rx Lacosamide [Vimpat] 150 mg PO BID 30 Days #60 tablet 03/06/21 Unknown Rx levETIRAcetam [Keppra TAB] 500 mg PO BID 30 Days #60 tablet 03/06/21 Unknown Rx Ibuprofen [Motrin 800 MG tab] 800 mg PO Q8HR PRN #20 tablet 07/10/21 Unknown Rx Allergies Allergy/AdvReac Type Severity Reaction Status Date / Time No Known Allergies Allergy Verified 02/10/18 20:59 ED Review of Systems ROS: Stated complaint: SEIZURES Other details as noted in HPI Comment: Unobtainable due to pts medical conditions ED Past Medical Hx - Past Medical History Hx CVA: Yes Hx Congestive Heart Failure: No Hx Diabetes: No Hx Seizures: Yes Hx Asthma: No Hx COPD: No Additional medical history: meningitis - Surgical History Additional Surgical History: LEFT ARM / LEFT FINGERS AMPUTATED - Social History Smoking Status: Never Smoker - Medications Home Medications: Home Medications Medication Instructions Recorded Confirmed Last Taken Type predniSONE [Deltasone] 20 mg PO QDAY #3 tab 05/13/17 Unknown Rx diphenhydrAMINE [Benadryl CAP] 25 mg PO Q8HR PRN 02/26/19 Unknown History Lacosamide [Vimpat] 150 mg PO BID 30 Days #60 tablet 03/06/21 Unknown Rx levETIRAcetam [Keppra TAB] 500 mg PO BID 30 Days #60 tablet 03/06/21 Unknown Rx Ibuprofen [Motrin 800 MG tab] 800 mg PO Q8HR PRN #20 tablet 07/10/21 Unknown Rx ED Physical Exam - General Limitations: No Limitations General appearance: lethargic - Head Head exam: Present: atraumatic, normocephalic - Eye Eye exam: Present: normal appearance - ENT ENT exam: Present: mucous membranes moist - Neck Neck exam: Present: normal inspection - Respiratory Respiratory exam: Present: normal lung sounds bilaterally. Absent: respiratory distress - Cardiovascular Cardiovascular Exam: Present: regular rate, normal rhythm. Absent: systolic murmur, diastolic murmur, rubs, gallop - GI/Abdominal GI/Abdominal exam: Present: soft, normal bowel sounds - Extremities Exam Extremities exam: Present: normal inspection - Back Exam Back exam: Present: normal inspection - Neurological Exam Neurological exam: Present: alert, oriented X3 - Psychiatric Psychiatric exam: Present: normal affect, normal mood - Skin Skin exam: Present: warm, dry, intact, normal color. Absent: rash ED Course Vital Signs 10/16/21 12:35 Temperature 98.1 F Pulse Rate 87 Respiratory 16 Rate Blood Pressure 112/48 [Right] O2 Sat by Pulse 98 Oximetry - Reevaluation(s) Reevaluation #1: 10/16/21 16:15 work up negative loaded with ragini, ct head negative vss, back to [facility] refilled for her meds ED Medical Decision Making - Lab Data Result diagrams: 10/16/21 12:51 10/16/21 12:51 Critical care attestation.: If time is entered above; I have spent that time in minutes in the direct care of this critically ill patient, excluding procedure time. ED Disposition Clinical Impression: Seizure Disposition: 01 HOME / SELF CARE / HOMELESS Is pt being admited?: No Does the pt Need Aspirin: No Condition: Stable Instructions: Epilepsy, [id number] Referrals: PRIMARY CARE,MD [Primary Care Provider] - 3-5 Days
[2021-10-17 07:09] VITALS: BP 108/60
== END 2021-10-17 08:19 | disposition home or self-care (01) ==
LOC: ED 12:30
DX: G40.909 Epilepsy, unspecified, not intractable, without status epilepticus (principal)
CPT/HCPCS: 36415; 70450; 71045; 80053; 80185; 80307; 81001; 81025; 82962; 83880; 85007; 85025; 86140; 96365; 99285; J1953; J7030; 80320; Q0162; G0480

== ENCOUNTER 2021-12-26 10:39 | Inpatient (IN) | payer MEDICAID ==
[2021-12-26] MEDS ORDERED: LORazepam 2 MG/ML VIAL IV NR (11:00)
[2021-12-26] MEDS ORDERED: levETIRAcetam 1000 MG/NS 0.75% 1,000 MG/100 ML BAG IV ONE (11:01)
--- NOTE | 2021-12-26 11:04 | Emergency Department Report ---
HPI - General Chief Complaint: Seizure Time Seen by Provider: 12/26/21 10:59 - HPI HPI: Room 1 The patient is a 31-year-old female present with chief complaint of seizure. Patient reportedly has a history of seizure disorder and takes Keppra. Patient reportedly had a seizure at home. EMS was called and arrived on scene to find the patient had a seizure. Patient was postictal during transport and upon arrival to the ED had another witnessed generalized tonic-clonic seizure. Patient is currently postictal ED Past Medical Hx - Past Medical History Hx CVA: Yes Hx Seizures: Yes Additional medical history: meningitis - Surgical History Additional Surgical History: LEFT ARM / LEFT FINGERS AMPUTATED - Family History Family history: no significant - Social History Smoking Status: Unknown if ever smoked Substance Use Type: None - Medications Home Medications: Home Medications Medication Instructions Recorded Confirmed Last Taken Type predniSONE [Deltasone] 20 mg PO QDAY #3 tab 05/13/17 Unknown Rx diphenhydrAMINE [Benadryl CAP] 25 mg PO Q8HR PRN 02/26/19 Unknown History Lacosamide [Vimpat] 150 mg PO BID 30 Days #60 tablet 03/06/21 Unknown Rx levETIRAcetam [Keppra TAB] 500 mg PO BID 30 Days #60 tablet 03/06/21 Unknown Rx Ibuprofen [Motrin 800 MG tab] 800 mg PO Q8HR PRN #20 tablet 07/10/21 Unknown Rx Lacosamide [Vimpat] 100 mg PO Q12HR #30 tablet 10/16/21 Unknown Rx levETIRAcetam [Keppra TAB] 500 mg PO BID #30 tablet 10/16/21 Unknown Rx ED Review of Systems ROS: Stated complaint: SEIZURE Other details as noted in HPI Comment: Unobtainable due to pts medical conditions (Postictal) Physical Exam - Physical Exam Vital Signs: Vital Signs 12/26/21 12/26/21 10:44 10:51 Temperature 98 F Pulse Rate 95 H Respiratory 18 20 Rate Blood Pressure 104/43 [Right] O2 Sat by Pulse 96 98 Oximetry Physical Exam: GENERAL: The patient is well-developed well-nourished female lying on stretcher currently postictal. [] HEENT: Normocephalic. Atraumatic. NECK: Supple. Trachea midline CHEST/LUNGS: Clear to auscultation. There is no respiratory distress noted. HEART/CARDIOVASCULAR: Regular. There is no tachycardia. There is no gallop rub or murmur. ABDOMEN: Abdomen is soft, nontender. Patient has normal bowel sounds. There is no abdominal distention. SKIN: There is no rash. There is no edema. There is no diaphoresis. NEURO: The patient is asleep/postictal MUSCULOSKELETAL: There is no evidence of acute injury. ED Course Vital Signs 12/26/21 12/26/21 10:44 10:51 Temperature 98 F Pulse Rate 95 H Respiratory 18 20 Rate Blood Pressure 104/43 [Right] O2 Sat by Pulse 96 98 Oximetry - Reevaluation(s) Reevaluation #1: 12/26/21 14:20 Patient remains postictal. No further seizure activity reported. Will admit for status epilepticus ED Medical Decision Making - Lab Data Result diagrams: 12/26/21 11:21 12/26/21 11:21 Laboratory Tests 12/26/21 12/26/21 12/26/21 11:21 11:21 11:21 WBC 13.5 H RBC 4.04 Hgb 12.9 Hct 39.4 MCV 98 H MCH 32 MCHC 33 RDW 13.4 Plt Count 288 Add Manual Diff Complete Total Counted 100 Seg Neutrophils % Crew Attendant Band Neutrophils % 0 Lymphocytes % (Manual) 4.0 L Reactive Lymphs % (Man) 0 Monocytes % (Manual) 2.0 Eosinophils % (Manual) 0 Metamyelocytes % 0 Myelocytes % 0 Promyelocytes % 0 Blast Cells % 0 Nucleated RBC % Not Reportable Seg Neutrophils # Man 12.7 H Band Neutrophils # 0.0 Lymphocytes # (Manual) 0.5 L Abs React Lymphs (Man) 0.0 Monocytes # (Manual) 0.3 Eosinophils # (Manual) 0.0 Basophils # (Manual) 0.0 Metamyelocytes # 0.0 Myelocytes # 0.0 Promyelocytes # 0.0 Blast Cells # 0.0 WBC Morphology Not Reportable Hypersegmented Neuts Not Reportable Hyposegmented Neuts Not Reportable Hypogranular Neuts Not Reportable Smudge Cells Not Reportable Toxic Granulation Not Reportable Toxic Vacuolation Not Reportable Dohle Bodies Not Reportable Pelger-Huet Anomaly Not Reportable Riana Rods Not Reportable Platelet Estimate Consistent w auto Clumped Platelets Not Reportable Plt Clumps, EDTA Not Reportable Large Platelets Not Reportable Giant Platelets Not Reportable Platelet Satelliting Not Reportable Plt Morphology Comment Not Reportable RBC Morphology Normal Dimorphic RBCs Not Reportable Polychromasia Not Reportable Hypochromasia Not Reportable Poikilocytosis Not Reportable Anisocytosis Not Reportable Microcytosis Not Reportable Macrocytosis Not Reportable Spherocytes Not Reportable Pappenheimer Bodies Not Reportable Sickle Cells Not Reportable Target Cells Not Reportable Tear Drop Cells Not Reportable Ovalocytes Not Reportable Helmet Cells Not Reportable Velazquze-[place] Bodies Not Reportable [place] Rings Not Reportable [place] Cells Not Reportable Bite Cells Not Reportable Crenated Cell Not Reportable Elliptocytes Not Reportable Acanthocytes (Spur) Not Reportable Rouleaux Not Reportable Hemoglobin C Crystals Not Reportable Schistocytes Not Reportable Malaria parasites Not Reportable Chepe Bodies Not Reportable Hem Pathologist Commnt No Sodium 139 Potassium 4.3 Chloride 102.7 Carbon Dioxide 20 L Anion Gap 21 BUN 14 Creatinine 1.1 Estimated GFR > 60 BUN/Creatinine Ratio 13 Glucose 137 H Calcium 9.1 Magnesium 2.40 H HCG, Qual Negative 12/26/21 11:21 WBC RBC Hgb Hct MCV MCH MCHC RDW Plt Count Add Manual Diff Total Counted Seg Neutrophils % Band Neutrophils % Lymphocytes % (Manual) Reactive Lymphs % (Man) Monocytes % (Manual) Eosinophils % (Manual) Metamyelocytes % Myelocytes % Promyelocytes % Blast Cells % Nucleated RBC % Seg Neutrophils # Man Band Neutrophils # Lymphocytes # (Manual) Abs React Lymphs (Man) Monocytes # (Manual) Eosinophils # (Manual) Basophils # (Manual) Metamyelocytes # Myelocytes # Promyelocytes # Blast Cells # WBC Morphology TNR Hypersegmented Neuts Hyposegmented Neuts Hypogranular Neuts Smudge Cells Toxic Granulation Toxic Vacuolation Dohle Bodies Pelger-Huet Anomaly Riana Rods Platelet Estimate Clumped Platelets Plt Clumps, EDTA Large Platelets Giant Platelets Platelet Satelliting Plt Morphology Comment RBC Morphology Dimorphic RBCs Polychromasia Hypochromasia Poikilocytosis Anisocytosis Microcytosis Macrocytosis Spherocytes Pappenheimer Bodies Sickle Cells Target Cells Tear Drop Cells Ovalocytes Helmet Cells Velazquez-[place] Bodies [place] Rings Benny Cells Bite Cells Crenated Cell Elliptocytes Acanthocytes (Spur) Rouleaux Hemoglobin C Crystals Schistocytes Malaria parasites Chepe Bodies Hem Pathologist Commnt Sodium Potassium Chloride Carbon Dioxide Anion Gap BUN Creatinine Estimated GFR BUN/Creatinine Ratio Glucose Calcium Magnesium HCG, Qual - Radiology Data Radiology results: report reviewed (CT head), image reviewed (CT head) [facility] [address] [place] [address] Cat Scan Report Signed Patient: MICHELLE HANNON MR#: [id number] : 1990 Acct:[id number] Age/Sex: 31 / F ADM Date: 12/26/21 Loc: ED Attending Dr: Ordering Physician: JOCE SANTIAGO MD Date of Service: 12/26/21 Procedure(s): CT head/brain wo con Accession Number(s): [id number] cc: JOCE SANTIGAO MD CT head/brain wo con INDICATION: Seizures. TECHNIQUE: Routine CT head. All CT scans at this location are performed using CT dose reduction for ALARA by means of automated exposure control. COMPARISON: None. FINDINGS: Intracranial: Stern- white matter differentiation is maintained. No intracranial hemorrhage. No extra axial collection. No hydrocephalus. No herniation. Sinuses: Paranasal sinuses and mastoid air cells are essentially clear. Orbits: Globes are intact. Calvarium: No acute fracture. IMPRESSION: 1. No acute intracranial abnormality. Signer Name: Rome Ann MD Signed: 12/26/2021 1:23 PM Workstation Name: [id number] Transcribed By: CS Dictated By: Rome Ann MD Electronically Authenticated By: Rome Ann MD Signed Date/Time: 12/26/21 132 DD/ 1322 TD/TT: - Differential Diagnosis Seizure disorder, status epilepticus, electrolyte abnormality Critical care attestation.: If time is entered above; I have spent that time in minutes in the direct care of this critically ill patient, excluding procedure time. ED Disposition Clinical Impression: Status epilepticus Disposition: ADMITTED INPATIENT Is pt being admited?: Yes Does the pt Need Aspirin: No Condition: Fair Time of Disposition: 14:21 (Care transferred to hospitalist (Dr. Maldonado))
[2021-12-26 11:44] LABS: Hematocrit 39.4 % (30.3-42.9); Hemoglobin 12.9 gm/dl (10.1-14.3); Mean Corpuscular HGB Conc 33 % (30-34); Mean Corpuscular Volume 98 fl (79-97); Platelet Count 288 K/mm3 (140-440); Red Blood Count 4.04 M/mm3 (3.65-5.03); Red Cell Distribution Width 13.4 % (13.2-15.2)
[2021-12-26 12:02] LABS: BUN/Creatinine Ratio 13; Blood Urea Nitrogen 14 mg/dL (7-17); Calcium 9.1 mg/dL (8.4-10.2); Hemolysis Index 2
[2021-12-26 12:42] LABS: Eosinophils % (Manual) 0 % (0.0-4.3); Total Cells Counted 100
[2021-12-26 12:43] LABS: Platelet Estimate Consistent w Auto; RBC Morphology Normal
--- NOTE | 2021-12-26 13:28 | Cat Scan Report ---
CT head/brain wo con INDICATION: Seizures. TECHNIQUE: Routine CT head. All CT scans at this location are performed using CT dose reduction for A SOLOMON by means of automated exposure control. COMPARISON: None. FINDINGS: Intracranial: Stern-white matter differentiation is maintained. No intracranial hemorrhage. No extra a xial collection. No hydrocephalus. No herniation. Sinuses: Paranasal sinuses and mastoid air cells are essentially clear. Orbits: Globes are intact. Calvarium: No acute fracture. IMPRESSION: 1. No acute intracranial abnormality. Signer Name: Rome Ann MD Signed: 12/26/2021 1:23 PM Workstation Name: [id number]
[2021-12-26] MEDS ORDERED: ACETAMINOPHEN 325 MG TAB PO PRN (20:09)
[2021-12-26] MEDS ORDERED: ONDANSETRON 4 MG/2 ML INJ IV PRN (20:09)
[2021-12-26] MEDS ORDERED: METOCLOPRAMIDE 10 MG/2 ML INJ IV PRN (20:18)
[2021-12-26] MEDS ORDERED: oxyCODONE /ACETAMINOPHEN 5-325MG TAB PO PRN (20:18)
[2021-12-26] MEDS ORDERED: MORPHINE 2 MG/1 ML INJ IV PRN (20:18)
--- NOTE | 2021-12-26 20:25 | History and Physical Report ---
History of Present Illness Date of examination: 12/26/21 Date of admission: 12/26/21 Chief complaint: Continois seizures x3 postictal state. History of present illness: 31 year old AAF brought in EMS for recurrent seizures.Witnessed.No fever or chills.had witnessed seizyre n the Ed--Tonic clonic type. Patient reportedly has a history of seizure disorder and takes Keppra. Patient reportedly had a seizure at home. EMS was called and arrived on scene to find the patient having a seizure. Patient was postictal during transport and upon arrival to the ED had another witnessed generalized tonic-clonic seizure. Patient is currently postictal - Past Medical History -- CVA: Yes -- Seizures: Yes Additional medical history: meningitis - Surgical History Additional Surgical History: LEFT ARM / LEFT FINGERS AMPUTATED - Family History Family history: no significant - Social History Smoking Status: Unknown if ever smoked Substance Use Type: None - Medications Home Medications: Home Medications Medication Instructions Recorded Confirmed Last Taken Type predniSONE [Deltasone] 20 mg PO QDAY #3 tab 05/13/17 Unknown Rx diphenhydrAMINE [Benadryl CAP] 25 mg PO Q8HR PRN 02/26/19 Unknown History Lacosamide [Vimpat] 150 mg PO BID 30 Days #60 tablet 03/06/21 Unknown Rx levETIRAcetam [Keppra TAB] 500 mg PO BID 30 Days #60 tablet 03/06/21 Unknown Rx Ibuprofen [Motrin 800 MG tab] 800 mg PO Q8HR PRN #20 tablet 07/10/21 Unknown Rx Lacosamide [Vimpat] 100 mg PO Q12HR #30 tablet 10/16/21 Unknown Rx levETIRAcetam [Keppra TAB] 500 mg PO BID #30 tablet 10/16/21 Unknown Rx Review of Systems ROS: Stated complaint: SEIZURE Other details as noted in HPI Comment: Unobtainable due to pts medical conditions (Postictal) Medications and Allergies Allergies Allergy/AdvReac Type Severity Reaction Status Date / Time No Known Allergies Allergy Verified 02/10/18 20:59 Home Medications Medication Instructions Recorded Confirmed Last Taken Type predniSONE [Deltasone] 20 mg PO QDAY #3 tab 05/13/17 Unknown Rx diphenhydrAMINE [Benadryl CAP] 25 mg PO Q8HR PRN 02/26/19 Unknown History Lacosamide [Vimpat] 150 mg PO BID 30 Days #60 tablet 03/06/21 Unknown Rx levETIRAcetam [Keppra TAB] 500 mg PO BID 30 Days #60 tablet 03/06/21 Unknown Rx Ibuprofen [Motrin 800 MG tab] 800 mg PO Q8HR PRN #20 tablet 07/10/21 Unknown Rx Lacosamide [Vimpat] 100 mg PO Q12HR #30 tablet 10/16/21 Unknown Rx levETIRAcetam [Keppra TAB] 500 mg PO BID #30 tablet 10/16/21 Unknown Rx Active Meds: Active Medications Lorazepam (Lorazepam 2 Mg/Ml Vial) 2 mg IV ONCE NR Stop: 12/26/21 23:59 Exam - Constitutional Vitals: Temp Pulse Resp BP Pulse Ox 98 F 99 H 19 87/58 98 12/26/21 10:44 12/26/21 13:01 12/26/21 13:01 12/26/21 18:31 12/26/21 18:31 General appearance: Present: mild distress, well-nourished - EENT Eyes: Present: PERRL ENT: hearing intact, clear oral mucosa, other (post ictal) - Neck Neck: Present: supple, normal ROM - Respiratory Respiratory effort: normal Respiratory: bilateral: CTA - Cardiovascular Heart rate: 78 Rhythm: regular Heart Sounds: Present: S1 & S2. Absent: rub, click - Extremities Extremities: no ischemia, pulses symmetrical, No edema Peripheral Pulses: within normal limits - Abdominal General gastrointestinal: Present: soft, non-tender, non-distended, normal bowel sounds Female genitourinary: Present: normal - Integumentary Integumentary: Present: clear, warm, dry - Musculoskeletal Musculoskeletal: generalized weakness - Psychiatric Psychiatric: other (Post ictal) - Neurologic Neurologic: CNII-XII intact, moves all extremities, other (post ictal) - Allied Health Allied health notes reviewed: nursing, case management Results - Labs CBC & Chem 7: 12/26/21 11:21 12/26/21 11:21 Labs: Laboratory Last Values WBC 13.5 K/mm3 (4.5-11.0) H 12/26/21 11:21 RBC 4.04 M/mm3 (3.65-5.03) 12/26/21 11:21 Hgb 12.9 gm/dl (10.1-14.3) 12/26/21 11:21 Hct 39.4 % (30.3-42.9) 12/26/21 11:21 MCV 98 fl (79-97) H 12/26/21 11:21 MCH 32 pg (28-32) 12/26/21 11:21 MCHC 33 % (30-34) 12/26/21 11:21 RDW 13.4 % (13.2-15.2) 12/26/21 11:21 Plt Count 288 K/mm3 (140-440) 12/26/21 11:21 Add Manual Diff Complete 12/26/21 11:21 Total Counted 100 12/26/21 11:21 Seg Neutrophils % Lead Shop Operator 12/26/21 11:21 Band Neutrophils % 0 % 12/26/21 11:21 Lymphocytes % (Manual) 4.0 % (13.4-35.0) L 12/26/21 11:21 Reactive Lymphs % (Man) 0 % 12/26/21 11:21 Monocytes % (Manual) 2.0 % (0.0-7.3) 12/26/21 11:21 Eosinophils % (Manual) 0 % (0.0-4.3) 12/26/21 11:21 Metamyelocytes % 0 % 12/26/21 11:21 Myelocytes % 0 % 12/26/21 11:21 Promyelocytes % 0 % 12/26/21 11:21 Blast Cells % 0 % 12/26/21 11:21 Nucleated RBC % Not Reportable 12/26/21 11:21 Seg Neutrophils # Man 12.7 K/mm3 (1.8-7.7) H 12/26/21 11:21 Band Neutrophils # 0.0 K/mm3 12/26/21 11:21 Lymphocytes # (Manual) 0.5 K/mm3 (1.2-5.4) L 12/26/21 11:21 Abs React Lymphs (Man) 0.0 K/mm3 12/26/21 11:21 Monocytes # (Manual) 0.3 K/mm3 (0.0-0.8) 12/26/21 11:21 Eosinophils # (Manual) 0.0 K/mm3 (0.0-0.4) 12/26/21 11:21 Basophils # (Manual) 0.0 K/mm3 (0.0-0.1) 12/26/21 11:21 Metamyelocytes # 0.0 K/mm3 12/26/21 11:21 Myelocytes # 0.0 K/mm3 12/26/21 11:21 Promyelocytes # 0.0 K/mm3 12/26/21 11:21 Blast Cells # 0.0 K/mm3 12/26/21 11:21 WBC Morphology Not Reportable 12/26/21 11:21 WBC Morphology TNR 12/26/21 11:21 Hypersegmented Neuts Not Reportable 12/26/21 11:21 Hyposegmented Neuts Not Reportable 12/26/21 11:21 Hypogranular Neuts Not Reportable 12/26/21 11:21 Smudge Cells Not Reportable 12/26/21 11:21 Toxic Granulation Not Reportable 12/26/21 11:21 Toxic Vacuolation Not Reportable 12/26/21 11:21 Dohle Bodies Not Reportable 12/26/21 11:21 Pelger-Huet Anomaly Not Reportable 12/26/21 11:21 Riana Rods Not Reportable 12/26/21 11:21 Platelet Estimate Consistent w auto 12/26/21 11:21 Clumped Platelets Not Reportable 12/26/21 11:21 Plt Clumps, EDTA Not Reportable 12/26/21 11:21 Large Platelets Not Reportable 12/26/21 11:21 Giant Platelets Not Reportable 12/26/21 11:21 Platelet Satelliting Not Reportable 12/26/21 11:21 Plt Morphology Comment Not Reportable 12/26/21 11:21 RBC Morphology Normal 12/26/21 11:21 Dimorphic RBCs Not Reportable 12/26/21 11:21 Polychromasia Not Reportable 12/26/21 11:21 Hypochromasia Not Reportable 12/26/21 11:21 Poikilocytosis Not Reportable 12/26/21 11:21 Anisocytosis Not Reportable 12/26/21 11:21 Microcytosis Not Reportable 12/26/21 11:21 Macrocytosis Not Reportable 12/26/21 11:21 Spherocytes Not Reportable 12/26/21 11:21 Pappenheimer Bodies Not Reportable 12/26/21 11:21 Sickle Cells Not Reportable 12/26/21 11:21 Target Cells Not Reportable 12/26/21 11:21 Tear Drop Cells Not Reportable 12/26/21 11:21 Ovalocytes Not Reportable 12/26/21 11:21 Helmet Cells Not Reportable 12/26/21 11:21 Velazquez-[place] Bodies Not Reportable 12/26/21 11:21 [place] Rings Not Reportable 12/26/21 11:21 Benny Cells Not Reportable 12/26/21 11:21 Bite Cells Not Reportable 12/26/21 11:21 Crenated Cell Not Reportable 12/26/21 11:21 Elliptocytes Not Reportable 12/26/21 11:21 Acanthocytes (Spur) Not Reportable 12/26/21 11:21 Rouleaux Not Reportable 12/26/21 11:21 Hemoglobin C Crystals Not Reportable 12/26/21 11:21 Schistocytes Not Reportable 12/26/21 11:21 Malaria parasites Not Reportable 12/26/21 11:21 Chepe Bodies Not Reportable 12/26/21 11:21 Hem Pathologist Commnt No 12/26/21 11:21 Sodium 139 mmol/L (137-145) 12/26/21 11:21 Potassium 4.3 mmol/L (3.6-5.0) 12/26/21 11:21 Chloride 102.7 mmol/L (98-107) 12/26/21 11:21 Carbon Dioxide 20 mmol/L (22-30) L 12/26/21 11:21 Anion Gap 21 mmol/L 12/26/21 11:21 BUN 14 mg/dL (7-17) 12/26/21 11:21 Creatinine 1.1 mg/dL (0.6-1.2) 12/26/21 11:21 Estimated GFR > 60 ml/min 12/26/21 11:21 BUN/Creatinine Ratio 13 % 12/26/21 11:21 Glucose 137 mg/dL (65-100) H 12/26/21 11:21 Calcium 9.1 mg/dL (8.4-10.2) 12/26/21 11:21 Magnesium 2.40 mg/dL (1.7-2.3) H 12/26/21 11:21 HCG, Qual Negative (Negative) 12/26/21 11:21 Short CBC 12/26/21 Range/Units 11:21 WBC 13.5 H (4.5-11.0) K/mm3 Hgb 12.9 (10.1-14.3) gm/dl Hct 39.4 (30.3-42.9) % Plt Count 288 (140-440) K/mm3 BMP 12/26/21 11:21 Sodium 139 Potassium 4.3 Chloride 102.7 Carbon Dioxide 20 L BUN 14 Creatinine 1.1 Glucose 137 H Calcium 9.1 - Imaging and Cardiology EKG: report reviewed CT Scan - head: report reviewed Assessment and Plan Advance Directives: Yes (Full code) VTE prophylaxis?: Chemical Plan of care discussed with patient/family: Yes - Patient Problems (1) Acute encephalopathy Current Visit: No Status: Acute Plan to address problem: Cont suppotive care. (2) Status epilepticus Current Visit: Yes Status: Acute Plan to address problem: IV Keppra and oral Vimpat for now Neurology consult (3) Post-ictal state Current Visit: No Status: Acute Plan to address problem: Supportive care (4) DVT prophylaxis Current Visit: No Status: Acute Plan to address problem: on anticoagulation and GI prophylaxis
[2021-12-26] MEDS ORDERED: SODIUM CHLORIDE 0.9% 1000 ML 1,000 ML IV SCH (20:30)
[2021-12-26] MEDS: levETIRAcetam 1,000 MG in DEXTROSE 5% IN WATER 100 ML IV SCH (23:03)
[2021-12-26] MEDS: HEPARIN 5,000 UNIT/1 ML VIAL SUB-Q SCH (23:06)
[2021-12-26] MEDS: LACOSAMIDE 100 MG TAB PO SCH (23:06)
[2021-12-27 05:15] LABS: Hematocrit 38.5 % (30.3-42.9); Hemoglobin 12.5 gm/dl (10.1-14.3); Mean Corpuscular HGB Conc 32 % (30-34); Mean Corpuscular Volume 99 fl (79-97); Platelet Count 261 K/mm3 (140-440); Red Blood Count 3.91 M/mm3 (3.65-5.03); Red Cell Distribution Width 13.2 % (13.2-15.2)
[2021-12-27 05:26] LABS: Alanine Aminotransferase 10 units/L (7-56); Albumin 3.9 g/dL (3.9-5); BUN/Creatinine Ratio 16; Blood Urea Nitrogen 14 mg/dL (7-17); Calcium 9.1 mg/dL (8.4-10.2); Hemolysis Index 3
[2021-12-27 05:55] VITALS: BP 97/62
[2021-12-27 06:43] LABS: Anisocytosis 1+; Basophils % (Manual) 0 % (0.0-1.8); Total Cells Counted 100
[2021-12-27 06:44] LABS: Platelet Estimate Consistent w Auto
[2021-12-27] MEDS: levETIRAcetam 1,000 MG in DEXTROSE 5% IN WATER 100 ML IV SCH (09:16)
[2021-12-27] MEDS: LACOSAMIDE 100 MG TAB PO SCH (09:17)
[2021-12-27] MEDS: HEPARIN 5,000 UNIT/1 ML VIAL SUB-Q SCH (09:17)
[2021-12-27] MEDS ORDERED: predniSONE 20 MG TAB PO SCH (10:00)
--- NOTE | 2021-12-27 10:24 | Progress Note ---
Assessment and Plan Assessment and plan: Advance Directives: Yes (Full code) VTE prophylaxis?: Chemical Plan of care discussed with patient/family: Yes - Patient Problems (1) Acute encephalopathy Current Visit: No Status: Acute Plan to address problem: Cont suppotive care. (2) Status epilepticus Current Visit: Yes Status: Acute Plan to address problem: IV Keppra and oral Vimpat for now Neurology consult (3) Post-ictal state Current Visit: No Status: Acute Plan to address problem: Supportive care (4) DVT prophylaxis Current Visit: No Status: Acute Plan to address problem: on anticoagulation and GI prophylaxis Hospitalist Physical - Constitutional Vitals: Temp Pulse Resp BP Pulse Ox 98.6 F 83 16 97/62 100 12/27/21 04:31 12/27/21 04:31 12/27/21 04:31 12/27/21 04:31 12/27/21 04:31 General appearance: Present: mild distress, well-nourished Results - Labs CBC & Chem 7: 12/27/21 04:43 12/27/21 04:43 Labs: Laboratory Last Values WBC 12.6 K/mm3 (4.5-11.0) H 12/27/21 04:43 RBC 3.91 M/mm3 (3.65-5.03) 12/27/21 04:43 Hgb 12.5 gm/dl (10.1-14.3) 12/27/21 04:43 Hct 38.5 % (30.3-42.9) 12/27/21 04:43 MCV 99 fl (79-97) H 12/27/21 04:43 MCH 32 pg (28-32) 12/27/21 04:43 MCHC 32 % (30-34) 12/27/21 04:43 RDW 13.2 % (13.2-15.2) 12/27/21 04:43 Plt Count 261 K/mm3 (140-440) 12/27/21 04:43 Add Manual Diff Complete 12/27/21 04:43 Total Counted 100 12/27/21 04:43 Seg Neutrophils % Dry Cleaning Supervisor 12/26/21 11:21 Seg Neuts % (Manual) 78.0 % (40.0-70.0) H 12/27/21 04:43 Band Neutrophils % 0 % 12/27/21 04:43 Lymphocytes % (Manual) 16.0 % (13.4-35.0) 12/27/21 04:43 Reactive Lymphs % (Man) 0 % 12/27/21 04:43 Monocytes % (Manual) 5.0 % (0.0-7.3) 12/27/21 04:43 Eosinophils % (Manual) 1.0 % (0.0-4.3) 12/27/21 04:43 Basophils % (Manual) 0 % (0.0-1.8) 12/27/21 04:43 Metamyelocytes % 0 % 12/27/21 04:43 Myelocytes % 0 % 12/27/21 04:43 Promyelocytes % 0 % 12/27/21 04:43 Blast Cells % 0 % 12/27/21 04:43 Nucleated RBC % Not Reportable 12/27/21 04:43 Seg Neutrophils # Man 9.8 K/mm3 (1.8-7.7) H 12/27/21 04:43 Band Neutrophils # 0.0 K/mm3 12/27/21 04:43 Lymphocytes # (Manual) 2.0 K/mm3 (1.2-5.4) 12/27/21 04:43 Abs React Lymphs (Man) 0.0 K/mm3 12/27/21 04:43 Monocytes # (Manual) 0.6 K/mm3 (0.0-0.8) 12/27/21 04:43 Eosinophils # (Manual) 0.1 K/mm3 (0.0-0.4) 12/27/21 04:43 Basophils # (Manual) 0.0 K/mm3 (0.0-0.1) 12/27/21 04:43 Metamyelocytes # 0.0 K/mm3 12/27/21 04:43 Myelocytes # 0.0 K/mm3 12/27/21 04:43 Promyelocytes # 0.0 K/mm3 12/27/21 04:43 Blast Cells # 0.0 K/mm3 12/27/21 04:43 WBC Morphology Not Reportable 12/27/21 04:43 Hypersegmented Neuts Not Reportable 12/27/21 04:43 Hyposegmented Neuts Not Reportable 12/27/21 04:43 Hypogranular Neuts Not Reportable 12/27/21 04:43 Smudge Cells Not Reportable 12/27/21 04:43 Toxic Granulation Not Reportable 12/27/21 04:43 Toxic Vacuolation Not Reportable 12/27/21 04:43 Dohle Bodies Not Reportable 12/27/21 04:43 Pelger-Huet Anomaly Not Reportable 12/27/21 04:43 Riana Rods Not Reportable 12/27/21 04:43 Platelet Estimate Consistent w auto 12/27/21 04:43 Clumped Platelets Not Reportable 12/27/21 04:43 Plt Clumps, EDTA Not Reportable 12/27/21 04:43 Large Platelets Not Reportable 12/27/21 04:43 Giant Platelets Not Reportable 12/27/21 04:43 Platelet Satelliting Not Reportable 12/27/21 04:43 Plt Morphology Comment Not Reportable 12/27/21 04:43 RBC Morphology Not Reportable 12/27/21 04:43 Dimorphic RBCs Not Reportable 12/27/21 04:43 Polychromasia Not Reportable 12/27/21 04:43 Hypochromasia Not Reportable 12/27/21 04:43 Poikilocytosis Not Reportable 12/27/21 04:43 Anisocytosis 1+ 12/27/21 04:43 Microcytosis Not Reportable 12/27/21 04:43 Macrocytosis Not Reportable 12/27/21 04:43 Spherocytes Not Reportable 12/27/21 04:43 Pappenheimer Bodies Not Reportable 12/27/21 04:43 Sickle Cells Not Reportable 12/27/21 04:43 Target Cells Not Reportable 12/27/21 04:43 Tear Drop Cells Not Reportable 12/27/21 04:43 Ovalocytes Not Reportable 12/27/21 04:43 Helmet Cells Not Reportable 12/27/21 04:43 Velaz[place] Bodies Not Reportable 12/27/21 04:43 [place] Rings Not Reportable 12/27/21 04:43 Benny Cells Not Reportable 12/27/21 04:43 Bite Cells Not Reportable 12/27/21 04:43 Crenated Cell Not Reportable 12/27/21 04:43 Elliptocytes Not Reportable 12/27/21 04:43 Acanthocytes (Spur) Not Reportable 12/27/21 04:43 Rouleaux Not Reportable 12/27/21 04:43 Hemoglobin C Crystals Not Reportable 12/27/21 04:43 Schistocytes Not Reportable 12/27/21 04:43 Malaria parasites Not Reportable 12/27/21 04:43 Chepe Bodies Not Reportable 12/27/21 04:43 Hem Pathologist Commnt No 12/27/21 04:43 Sodium 137 mmol/L (137-145) 12/27/21 04:43 Potassium 3.8 mmol/L (3.6-5.0) 12/27/21 04:43 Chloride 101.6 mmol/L (98-107) 12/27/21 04:43 Carbon Dioxide 25 mmol/L (22-30) 12/27/21 04:43 Anion Gap 14 mmol/L 12/27/21 04:43 BUN 14 mg/dL (7-17) 12/27/21 04:43 Creatinine 0.9 mg/dL (0.6-1.2) 12/27/21 04:43 Estimated GFR > 60 ml/min 12/27/21 04:43 BUN/Creatinine Ratio 16 % 12/27/21 04:43 Glucose 98 mg/dL (65-100) 12/27/21 04:43 Calcium 9.1 mg/dL (8.4-10.2) 12/27/21 04:43 Magnesium 2.40 mg/dL (1.7-2.3) H 12/26/21 11:21 Total Bilirubin 0.40 mg/dL (0.1-1.2) 12/27/21 04:43 AST 30 units/L (5-40) 12/27/21 04:43 ALT 10 units/L (7-56) 12/27/21 04:43 Alkaline Phosphatase 46 units/L (35-129) 12/27/21 04:43 Total Protein 5.9 g/dL (6.3-8.2) L 12/27/21 04:43 Albumin 3.9 g/dL (3.9-5) 12/27/21 04:43 Albumin/Globulin Ratio 2.0 % 12/27/21 04:43 HCG, Qual Negative (Negative) 12/26/21 11:21 Louis/IV: Voiding Method Toilet Active Medications - Current Medications Current Medications: Generic Name Dose Route Start Last Admin Trade Name Freq PRN Reason Stop Dose Admin Acetaminophen 650 mg 12/26/21 20:09 Acetaminophen 325 Mg Tab PO Q4H PRN Pain MILD(1-3)/Fever >100.5/CHAVEZ Heparin Sodium (Porcine) 5,000 unit 12/26/21 22:00 12/27/21 09:17 Heparin 5,000 Unit/1 Ml Vial SUB-Q 5,000 unit Q12HR BELTRAN Administration Sodium Chloride 1,000 mls @ 75 mls/hr 12/26/21 20:30 12/26/21 23:05 Nacl 0.9% 1000 Ml IV 75 mls/hr DIRECT BELTRAN Administration Levetiracetam 1,000 mg/ 110 mls @ 400 mls/hr 12/26/21 22:00 12/27/21 09:16 Dextrose IV 400 mls/hr Q12HR BELTRAN Administration Lacosamide 150 mg 12/26/21 22:00 12/27/21 09:17 Lacosamide 100 Mg Tab PO 150 mg BID BELTRAN Administration Metoclopramide HCl 10 mg 12/26/21 20:18 Metoclopramide 10 Mg/2 Ml Inj IV Q6H PRN Nausea And Vomiting Morphine Sulfate 2 mg 12/26/21 20:18 Morphine 2 Mg/1 Ml Inj IV Q4H PRN Pain, Moderate (4-6) Ondansetron HCl 4 mg 12/26/21 20:09 Ondansetron 4 Mg/2 Ml Inj IV Q8H PRN Nausea And Vomiting Oxycodone/Acetaminophen 1 tab 12/26/21 20:18 Oxycodone /Acetaminophen 5-325mg Tab PO Q6H PRN Pain, Moderate (4-6) Sodium Chloride 10 ml 12/26/21 22:00 12/27/21 09:17 Sodium Chloride 0.9% 10 Ml Flush Syringe IV 10 ml BID BELTRAN Administration Sodium Chloride 10 ml 12/26/21 20:09 Sodium Chloride 0.9% 10 Ml Flush Syringe IV PRN PRN LINE FLUSH
--- NOTE | 2021-12-29 12:47 | Discharge Summary ---
Providers - Providers Date of Admission: 12/26/21 21:08 Date of discharge: 12/27/21 Attending physician: TIERRA MNAE 12/26/21 20:18 Consult to Physician [CONS] Routine Comment: Consulting Provider: KARON ARRIAGA Physician Instructions: Reason For Exam: Status epilepticus Primary care physician: GEORGE JUAN Hospitalization Reason for admission: Recurrent tonic-clonic seizures, at home, EMS and in ER Condition: Serious Pertinent studies: CT head without contrast; no acute abnormality noted Hospital course: 31-year-old -[place] female patient was brought to the emergency room with recurrent seizures witnessed by family patient did not have any fever patient also had generalized tonic-clonic convulsions in the ER patient has history of seizure disorder and takes Keppra admitted to the hospital consulted neurologist placed on seizure precautions, seizure medication, neuro work-up was ordered however this morning, patient wanted to leave the hospital Does not want to stay, risks and consequences and complications of untreated seizures explained to the patient and boyfriend at the bedside. They both verbalized understanding. However both of them insisted on leaving. Signed the AMA note and left the hospital Strongly encouraged him to go to the nearest emergency room if she changes her mind or if she has new episodes of seizure, both verbalized understanding Patient left AMA Final diagnosis: -- Acute toxic metabolic encephalopathy Secondary to seizure , postictal state Leukocytosis, metabolic acidosis Supportive care, treat the underlying cause Seizure precautions, seizure medications -- Status epilepticus IV Keppra and oral Vimpat for now Seizure precautions Do not drive until cleared by neurologist Follow-up neurology evaluation and recommendations Work-up is in progress ,Neurology consult -- Post-ictal state Supportive care, fall precautions Seizure precautions --Leukocytosis; Closely monitor, evaluate for any infectious process --Ongoing tobacco use; Smoking cessation counseling Advised nicotine patch as needed -- Metabolic acidosis; IV fluids supportive care --DVT prophylaxis on anticoagulation and GI prophylaxis Pepcid Patient left AMA Disposition: LEFT AGAINST MEDICAL ADVICE Final Discharge Diagnosis (Prints w/discharge instructions): Acute toxic metabolic encephalopathy. Status epilepticus. History of seizures. Postictal state. Leukocytosis. Metabolic acidosis. Ongoing tobacco use Time spent for discharge: 35 MIN Core Measure Documentation - Palliative Care Palliative Care/ Comfort Measures: Not Applicable - Core Measures Any of the following diagnoses?: none Exam - Physical Exam Narrative exam: patient left AMA - Constitutional Vitals: Temp Pulse Resp BP Pulse Ox 98.6 F 83 16 97/62 96 12/27/21 04:31 12/27/21 04:31 12/27/21 04:31 12/27/21 04:31 12/27/21 11:00 Plan Diet: regular Additional Instructions: Patient left AMA. Strongly advised not to drive until cleared by neurologist Follow up with: GEORGE JUAN MD [Primary Care Provider] - 7 Days Forms: AMA Form
== END 2021-12-27 11:11 | disposition left against medical advice (07) | DRG 101 ==
LOC: ED 10:39 → 3A 21:08
PROVIDERS: ADMIT Internal Medicine; ATTEND Internal Medicine
DX: G40.901 Epilepsy, unspecified, not intractable, with status epilepticus (principal); D72.829 Elevated white blood cell count, unspecified; E87.2 Acidosis
CPT/HCPCS: 36415; 70450; 80048; 80053; 83735; 84703; 85007; 85025; 96374; 99285; G0378; J7060; J1644; J1953; J2060; J7030

== ENCOUNTER 2021-12-29 23:02 | Emergency (ER) | payer MEDICAID ==
[2021-12-29] MEDS ORDERED: SODIUM CHLORIDE 0.9% 500 ML 500 ML IV ONE (23:05)
[2021-12-29] MEDS ORDERED: levETIRAcetam 1000 MG/NS 0.75% 1,000 MG/100 ML BAG IV ONE (23:05)
--- NOTE | 2021-12-29 23:07 | Event Note ---
Date: 12/29/21 Verbal report received from emergency medical services. EMS documentation not available at time of chart dictation Medical screening examination note: 31-year-old female with history of seizure, on Keppra and Vimpat, noncompliant, brought to the hospital by EMS with an EMS articulated complaint of seizure. As per EMS, family member or friend at home called lateral because of seizure. EMS reported normal vital signs in the field and normal Accu-Chek. EMS gave 2 mg of Ativan in the field, with termination of convulsion. In the emergency room, the patient is not convulsing. Patient does move head left and right. Patient difficult IV stick, therefore, this provider has inserted a right-sided 20-gauge external jugular IV. Right-sided neck is prepped in typical aseptic fashion, and a 20-gauge Angiocath was inserted by myself into the right external jugular vein, with 1 attempt, and no difficulty. Flushes easily. Load patient with Keppra, start fluids, obtain EKG laboratory studies, place patient on telemetry monitor. Detailed history and physical to be performed by oncoming ER provider. Suspect that there may be a component of psychogenic seizure/ PNES
[2021-12-29 23:30] LABS: Hematocrit 37.7 % (30.3-42.9); Hemoglobin 12.2 gm/dl (10.1-14.3); Mean Corpuscular HGB Conc 32 % (30-34); Mean Corpuscular Volume 99 fl (79-97); Platelet Count 261 K/mm3 (140-440); Red Blood Count 3.81 M/mm3 (3.65-5.03); Red Cell Distribution Width 13.2 % (13.2-15.2)
[2021-12-29 23:45] LABS: INR 0.89 (0.87-1.13)
[2021-12-29 23:53] LABS: Alanine Aminotransferase 54 units/L (7-56); Albumin 3.7 g/dL (3.9-5); Blood Urea Nitrogen 11 mg/dL (7-17); Calcium 8.6 mg/dL (8.4-10.2); Hemolysis Index 154
[2021-12-29 23:55] LABS: BUN/Creatinine Ratio 16
--- NOTE | 2021-12-30 01:26 | Emergency Department Report ---
ED Seizure HPI - General Chief Complaint: Seizure Stated Complaint: SEIZURE Time Seen by Provider: 12/30/21 01:10 Source: EMS Mode of arrival: Stretcher Limitations: Altered Mental Status - History of Present Illness Initial Comments: 31 yo F with h/o seizure who present with an episode that occurred at home today. Pt was admitted to the hospital last week but signed out AMA that she has to go home for something personal to her. Pt postictal during examination. History is limited at this time. NO other modifying or associated factors reported. - Related Data Home Medications Medication Instructions Recorded Confirmed Last Taken diphenhydrAMINE [Benadryl CAP] 25 mg PO Q8HR PRN 02/26/19 12/27/21 Unknown Previous Rx's Medication Instructions Recorded Last Taken Type predniSONE [Deltasone] 20 mg PO QDAY #3 tab 05/13/17 Unknown Rx Lacosamide [Vimpat] 150 mg PO BID 30 Days #60 tablet 03/06/21 Unknown Rx levETIRAcetam [Keppra TAB] 500 mg PO BID 30 Days #60 tablet 03/06/21 Unknown Rx Ibuprofen [Motrin 800 MG tab] 800 mg PO Q8HR PRN #20 tablet 07/10/21 Unknown Rx Lacosamide [Vimpat] 100 mg PO Q12HR #30 tablet 10/16/21 Unknown Rx levETIRAcetam [Keppra TAB] 500 mg PO BID #30 tablet 10/16/21 Unknown Rx Allergies Allergy/AdvReac Type Severity Reaction Status Date / Time No Known Allergies Allergy Verified 02/10/18 20:59 ED Review of Systems ROS: Stated complaint: SEIZURE Other details as noted in HPI Comment: All other systems reviewed and negative Neurological: weakness, other (seizure ) ED Past Medical Hx - Past Medical History Hx CVA: Yes Hx Congestive Heart Failure: No Hx Diabetes: No Hx Seizures: Yes Hx Asthma: No Hx COPD: No Additional medical history: meningitis - Surgical History Additional Surgical History: LEFT ARM / LEFT FINGERS AMPUTATED - Social History Smoking Status: Current Every Day Smoker - Medications Home Medications: Home Medications Medication Instructions Recorded Confirmed Last Taken Type predniSONE [Deltasone] 20 mg PO QDAY #3 tab 05/13/17 12/27/21 Unknown Rx diphenhydrAMINE [Benadryl CAP] 25 mg PO Q8HR PRN 02/26/19 12/27/21 Unknown History Lacosamide [Vimpat] 150 mg PO BID 30 Days #60 tablet 03/06/21 12/27/21 Unknown Rx levETIRAcetam [Keppra TAB] 500 mg PO BID 30 Days #60 tablet 03/06/21 12/27/21 Unknown Rx Ibuprofen [Motrin 800 MG tab] 800 mg PO Q8HR PRN #20 tablet 07/10/21 12/27/21 Unknown Rx Lacosamide [Vimpat] 100 mg PO Q12HR #30 tablet 10/16/21 12/27/21 Unknown Rx levETIRAcetam [Keppra TAB] 500 mg PO BID #30 tablet 10/16/21 12/27/21 Unknown Rx ED Physical Exam - General Limitations: Altered Mental Status General appearance: alert, postictal - Head Head exam: Present: normal inspection - Eye Eye exam: Present: normal appearance - ENT ENT exam: Present: normal exam, normal orophraynx, mucous membranes moist - Neck Neck exam: Present: normal inspection. Absent: tenderness - Respiratory Respiratory exam: Present: normal lung sounds bilaterally. Absent: respiratory distress, accessory muscle use - Cardiovascular Cardiovascular Exam: Present: regular rate, normal rhythm, normal heart sounds - GI/Abdominal GI/Abdominal exam: Present: soft, normal bowel sounds. Absent: distended, tenderness - Extremities Exam Extremities exam: Present: normal inspection, normal capillary refill. Absent: tenderness, pedal edema - Back Exam Back exam: Present: normal inspection - Neurological Exam Neurological exam: Present: alert, oriented X3 - Psychiatric Psychiatric exam: Present: normal affect, normal mood ED Course Vital Signs 12/29/21 23:30 Respiratory 18 Rate O2 Sat by Pulse 100 Oximetry - Reevaluation(s) Reevaluation #1: 12/30/21 01:25 here with seizure episode -- with h/o seizure will go ahead and order CBC, CMP and UA with UDS-- for any correctable cause-- started on ivf ns 1L bolus x 1 and Keppra 1g IVPB x 1-- Reevaluation #2: 12/30/21 04:41 Patient is up and report feeling much better and ready to go home-- ED Medical Decision Making - Lab Data Result diagrams: 12/29/21 23:13 12/29/21 23:13 - EKG Data -: EKG Interpreted by Me EKG shows normal: sinus rhythm Rate: normal - EKG Data 12/30/21 04:42 Normal sinus rhythm at a rate of [address] elevation or depression noted in this normal ECG. Critical care attestation.: If time is entered above; I have spent that time in minutes in the direct care of this critically ill patient, excluding procedure time. ED Disposition Clinical Impression: Seizure Disposition: 01 HOME / SELF CARE / HOMELESS Is pt being admited?: No Does the pt Need Aspirin: No Condition: Stable Instructions: Seizure, Adult, [id number] Additional Instructions: It is important that you continue to take your medication as prescribed by your primary doctor Increase your daily fluid to help your hydration Please do not hesitate to call or return to emergency room if your symptoms worsen Call and schedule follow-up with your primary doctor in the next 3 to 5 days for progress Referrals: BEHZAD VAUGHN MD [Referring] - 3-5 Days Time of Disposition: 04:42
[2021-12-30 05:24] VITALS: BP 116/69
== END 2021-12-30 03:30 | disposition home or self-care (01) ==
LOC: ED 23:02
DX: R56.9 Unspecified convulsions (principal); F17.200 Nicotine dependence, unspecified, uncomplicated; R79.1 Abnormal coagulation profile; Z79.899 Other long term (current) drug therapy
CPT/HCPCS: 36415; 80053; 82550; 83735; 84702; 85027; 85610; 93005; 96374; 99284; J1953; J7040; 80320; G0480

== ENCOUNTER 2022-01-10 18:30 | Emergency (ER) | payer MEDICAID ==
[2022-01-10] MEDS ORDERED: levETIRAcetam 1000 MG/NS 0.75% 1,000 MG/100 ML BAG IV ONE (19:00)
--- NOTE | 2022-01-10 19:04 | Emergency Department Report ---
ED Seizure HPI - General Chief Complaint: Seizure Stated Complaint: SEIZURES Time Seen by Provider: 01/10/22 18:55 Source: patient, EMS Mode of arrival: Stretcher Limitations: No Limitations - History of Present Illness Initial Comments: Patient is 31 years old female with history of seizure. Patient brought to the emergency room via EMS from home for evaluation of 2 episode of seizure. EMS stated that patient was postictal when they arrived to the house. No injury. According to the EMS boyfriend stated that patient is compliant with her medicat ion. No recent fever or chills. MD Complaint: seizure -: Sudden Description of Episode: loss of consciousness, tonic-clonic movement, post-event confusion Witnessed:: Yes Trauma: No Seizure History: known seizure disorder Possible Precipitating Event: none Treatments Prior to Arrival: none - Related Data Home Medications Medication Instructions Recorded Confirmed Last Taken diphenhydrAMINE [Benadryl CAP] 25 mg PO Q8HR PRN 02/26/19 12/27/21 Unknown Previous Rx's Medication Instructions Recorded Last Taken Type predniSONE [Deltasone] 20 mg PO QDAY #3 tab 05/13/17 Unknown Rx Lacosamide [Vimpat] 150 mg PO BID 30 Days #60 tablet 03/06/21 Unknown Rx levETIRAcetam [Keppra TAB] 500 mg PO BID 30 Days #60 tablet 03/06/21 Unknown Rx Ibuprofen [Motrin 800 MG tab] 800 mg PO Q8HR PRN #20 tablet 07/10/21 Unknown Rx Lacosamide [Vimpat] 100 mg PO Q12HR #30 tablet 10/16/21 Unknown Rx levETIRAcetam [Keppra TAB] 500 mg PO BID #30 tablet 10/16/21 Unknown Rx Allergies Allergy/AdvReac Type Severity Reaction Status Date / Time No Known Allergies Allergy Verified 02/10/18 20:59 ED Review of Systems ROS: Stated complaint: SEIZURES Other details as noted in HPI Comment: All other systems reviewed and negative Constitutional: denies: chills, fever Respiratory: denies: cough, shortness of breath, SOB with exertion, SOB at rest Cardiovascular: denies: chest pain, palpitations Gastrointestinal: denies: abdominal pain, nausea, vomiting, diarrhea Musculoskeletal: denies: back pain Neurological: denies: headache, weakness, numbness, paresthesias ED Past Medical Hx - Past Medical History Hx CVA: Yes Hx Congestive Heart Failure: No Hx Diabetes: No Hx Seizures: Yes Hx Asthma: No Hx COPD: No Additional medical history: meningitis - Surgical History Additional Surgical History: LEFT ARM / LEFT FINGERS AMPUTATED - Social History Smoking Status: Current Every Day Smoker - Medications Home Medications: Home Medications Medication Instructions Recorded Confirmed Last Taken Type predniSONE [Deltasone] 20 mg PO QDAY #3 tab 05/13/17 12/27/21 Unknown Rx diphenhydrAMINE [Benadryl CAP] 25 mg PO Q8HR PRN 02/26/19 12/27/21 Unknown History Lacosamide [Vimpat] 150 mg PO BID 30 Days #60 tablet 03/06/21 12/27/21 Unknown Rx levETIRAcetam [Keppra TAB] 500 mg PO BID 30 Days #60 tablet 03/06/21 12/27/21 Unknown Rx Ibuprofen [Motrin 800 MG tab] 800 mg PO Q8HR PRN #20 tablet 07/10/21 12/27/21 Unknown Rx Lacosamide [Vimpat] 100 mg PO Q12HR #30 tablet 10/16/21 12/27/21 Unknown Rx levETIRAcetam [Keppra TAB] 500 mg PO BID #30 tablet 10/16/21 12/27/21 Unknown Rx ED Physical Exam - General Limitations: No Limitations General appearance: alert, in no apparent distress - Head Head exam: Present: atraumatic, normocephalic, normal inspection - Eye Eye exam: Present: normal appearance - ENT ENT exam: Present: normal exam, normal orophraynx, mucous membranes moist - Neck Neck exam: Present: normal inspection, full ROM. Absent: tenderness, meningismus - Respiratory Respiratory exam: Present: normal lung sounds bilaterally - Cardiovascular Cardiovascular Exam: Present: regular rate, normal rhythm, normal heart sounds - GI/Abdominal GI/Abdominal exam: Present: soft, normal bowel sounds. Absent: distended, tenderness, guarding, rebound, rigid, organomegaly, mass, bruit, pulsatile mass, hernia - Extremities Exam Extremities exam: Present: normal inspection, full ROM, normal capillary refill. Absent: tenderness - Back Exam Back exam: Present: normal inspection, full ROM. Absent: CVA tenderness (R), CVA tenderness (L) - Neurological Exam Neurological exam: Present: alert, oriented X3, CN II-XII intact - Psychiatric Psychiatric exam: Present: normal mood. Absent: homicidal ideation, suicidal ideation - Skin Skin exam: Present: warm, intact, normal color ED Course Vital Signs 01/10/22 01/10/22 18:49 19:45 Temperature 98.4 F 97.8 F Pulse Rate 65 64 Respiratory 18 13 Rate Blood Pressure 101/38 Blood Pressure 113/70 [Left] O2 Sat by Pulse 96 97 Oximetry ED Medical Decision Making - Lab Data Result diagrams: 01/10/22 19:23 - Medical Decision Making Patient is 31 years old female with history of seizure. Patient brought to the emergency room via EMS from home for evaluation of 2 episode of seizure. EMS stated that patient was postictal when they arrived to the house. No injury. According to the EMS boyfriend stated that patient is compliant with her medication. No recent fever or chills. Patient remained stable in the ER with stable vital sign. No seizure activity observed in the ER. Patient received Keppra 1 g IV. Labs reviewed and is unremarkable. Advised patient to follow-up with her neurologist in the next 2 to 3 days and to return to the ER if she develop any new symptoms. Critical care attestation.: If time is entered above; I have spent that time in minutes in the direct care of this critically ill patient, excluding procedure time. ED Disposition Clinical Impression: Seizure Disposition: 01 HOME / SELF CARE / HOMELESS Is pt being admited?: No Condition: Stable Instructions: Seizure, Adult Referrals: SHIRA CAELRO MD [Referring] - 3-5 Days
[2022-01-10 19:40] LABS: Hematocrit 38.4 % (30.3-42.9); Hemoglobin 12.9 gm/dl (10.1-14.3); Mean Corpuscular HGB Conc 34 % (30-34); Mean Corpuscular Volume 97 fl (79-97); Platelet Count 369 K/mm3 (140-440); Red Blood Count 3.96 M/mm3 (3.65-5.03); Red Cell Distribution Width 13.4 % (13.2-15.2)
[2022-01-10 19:58] LABS: Blood Urea Nitrogen 9 mg/dL (7-17); Calcium 9.7 mg/dL (8.4-10.2); Hemolysis Index 4
[2022-01-10 20:10] LABS: BUN/Creatinine Ratio 13
[2022-01-10 20:36] LABS: Bacteria,Urine 1+ /HPF (Negative); Bilirubin,Urine NEG (Negative); Blood,Urine NEG (Negative); Color,Urine Yellow (Yellow); Mucus,Urine FEW /HPF; Protein,Urine <15 mg/dL mg/dL (Negative); Urobilinogen,Urine < 2.0 mg/dL (<2.0)
[2022-01-10 20:41] LABS: Amphetamine Screen,Urine PRESUMPTIVE NEGATIVE; Benzodiazepines Screen,Urine PRESUMPTIVE NEGATIVE; Cannabinoid Screen,Urine PRESUMPTIVE POSITIVE; Cocaine Screen,Urine PRESUMPTIVE NEGATIVE; Methadone Screen,Urine PRESUMPTIVE NEGATIVE; Opiate Screen,Urine PRESUMPTIVE NEGATIVE
[2022-01-10 20:48] LABS: Anisocytosis 1+; Platelet Estimate Consistent w Auto; Total Cells Counted 100
[2022-01-10 21:34] VITALS: BP 91/53
--- NOTE | 2022-01-11 08:58 | Electrocardiograph Report ---
[facility] Test Date: 2022-01-10 Test Time: 20:10:52 Pat Name: MICHELLE HANNON Department: Room: Gender: F Park Manager: TRAVIS Marie : 1990 Requested By: JANAE ELLIOTT Order Number: [id number] Reading MD: Jose Malone Measurements Intervals [place] Rate: 60 P: -8 FL: 166 QRS: 9 QRSD: 92 T: 16 QT: 421 QTc: 420 Interpretive Statements Sinus rhythm Compared to ECG 12/29/2021 23:17:33 No significant changes Electronically Signed On 01-11-2022 8:57:48 EDT by Jose Malone
== END 2022-01-10 22:32 | disposition home or self-care (01) ==
LOC: ED 18:30
DX: G40.909 Epilepsy, unspecified, not intractable, without status epilepticus (principal); G03.9 Meningitis, unspecified; Z86.73 Personal history of transient ischemic attack (TIA), and cerebral infarction without residual deficits; Z98.890 Other specified postprocedural states; F17.290 Nicotine dependence, other tobacco product, uncomplicated
CPT/HCPCS: 36415; 80048; 80307; 81001; 84703; 85007; 85025; 93005; 96365; 99284; J1953; 80320; G0480